=== PATIENT | female | born 1955 | race Caucasian/White ===

== ENCOUNTER 2018-09-08 16:42 | Emergency (ER) | payer OTHER ==
[2018-09-08] MEDS ORDERED: cefTRIAXone 1 GM Vial IM ONE (17:22)
[2018-09-08] MEDS ORDERED: Diphtheria,Pertussis(Acell),Tetanus Vaccine 0.5 ML Syringe IM ONE (17:25)
--- NOTE | 2018-09-08 17:28 | EDM.PDOC ---
ED HPI GENERAL MEDICAL PROBLEM - General Chief Complaint: Bite:Animal, Insect Stated Complaint: DOG BITE Time Seen by Provider: 09/08/18 17:26 Source of Information: Reports: Patient - History of Present Illness INITIAL COMMENTS - FREE TEXT/NARRATIVE: HISTORY AND PHYSICAL: History of present illness: []Patient presents with dog bite to her left hand over the dorsum to puncture wound is exist, one is a 1 cm full-thickness lack, the other is a tooth puncture with a partial-thickness drape Napoleon approximately 1.5 cm no suturing required Patient does know the dog, it has had all rabies shots and vaccinations No fever nausea vomiting chills sweats no redness warmth or exudates for culture Review of systems: As per history of present illness and below otherwise all systems reviewed and negative. Past medical history: As per history of present illness and as reviewed below otherwise noncontributory. Surgical history: As per history of present illness and as reviewed below otherwise noncontributory. Social history: No reported history of drug or alcohol abuse. Family history: As per history of present illness and as reviewed below otherwise noncontributory. Physical exam: HEENT: Atraumatic, normocephalic, pupils reactive, negative for conjunctival pallor or scleral icterus, mucous membranes moist, throat clear, neck supple, nontender, trachea midline. Lungs: Clear to auscultation, breath sounds equal bilaterally, chest nontender. Heart: S1S2, regular, negative for clicks, rubs, or JVD. Abdomen: Soft, nondistended, nontender. Negative for masses or hepatosplenomegaly. Negative for costovertebral tenderness. Pelvis: Stable nontender. Genitourinary: Deferred. Rectal: Deferred. Extremities: Atraumatic, negative for cords or calf pain. Neurovascular unremarkable. Neuro: Awake, alert, oriented. Cranial nerves II through XII unremarkable. Cerebellum unremarkable. Motor and sensory unremarkable throughout. Exam nonfocal. Diagnostics: [Clinical] Therapeutics: [Rocephin T dap Keflex] Patient had flushed the lesion at home Hibiclens Steri-Strips Impression: [Animal bite] Definitive disposition and diagnosis as appropriate pending reevaluation and review of above. Right Hand Pain Score (Numeric/FACES): 5 - Related Data Allergies Allergy/AdvReac Type Severity Reaction Status Date / Time vilanterol Allergy Anxiety Verified 09/08/18 17:03 Home Meds: Home Meds Levothyroxine 25 mcg PO ACBREAKFAST 09/08/18 [History] Past Medical History Endocrine/Metabolic History: Reports: Hypothyroidism - Infectious Disease History Infectious Disease History: Reports: Chicken Pox - Past Surgical History Musculoskeletal Surgical History: Reports: Knee Replacement Social & Family History - Family History Family Medical History: Noncontributory - Tobacco Use Smoking Status *Q: Never Smoker Second Hand Smoke Exposure: No - Caffeine Use Caffeine Use: Reports: Coffee - Recreational Drug Use Recreational Drug Use: No ED ROS GENERAL - Review of Systems Review Of Systems: See Below ED EXAM, ANIMAL BITE - Physical Exam Exam: See Below Course - Vital Signs Last Recorded V/S: Last Vital Signs Temp 96.5 F 09/08/18 17:05 Pulse 61 09/08/18 17:05 Resp 16 09/08/18 17:05 BP 176/95 H 09/08/18 17:05 Pulse Ox 95 09/08/18 17:05 - Orders/Labs/Meds Orders: Active Orders 24 hr Category Date Time Status Vaccines to be Administered [RC] PER UNIT ROUTINE Care 09/08/18 17:25 Ordered Diphth,Pertuss(Acell),Tet Vac [Adacel] Med 09/08/18 17:25 Once 0.5 ml IM .ONCE ONE Meds: Medications Discontinued Medications Generic Name Dose Route Start Last Admin Trade Name Jacki PRN Reason Stop Dose Admin Ceftriaxone Sodium 1 gm 09/08/18 17:22 Rocephin IM 09/08/18 17:23 ONETIME ONE Departure - Departure Time of Disposition: 17:28 Disposition: Home, Self-Care 01 Condition: Good Clinical Impression: Dog bite - Discharge Information Referrals: PCP,None [Primary Care Provider] - Additional Instructions: The following information is given to patients seen in the emergency department who are being discharged to home. This information is to outline your options for follow-up care. We provide all patients seen in our emergency department with a follow-up referral. The need for follow-up, as well as the timing and circumstances, are variable depending upon the specifics of your emergency department visit. If you don't have a primary care physician on staff, we will provide you with a referral. We always advise you to contact your personal physician following an emergency department visit to inform them of the circumstance of the visit and for follow-up with them and/or the need for any referrals to a consulting specialist. The emergency department will also refer you to a specialist when appropriate. This referral assures that you have the opportunity for follow-up care with a specialist. All of these measure are taken in an effort to provide you with optimal care, which includes your follow-up. Under all circumstances we always encourage you to contact your private physician who remains a resource for coordinating your care. When calling for follow-up care, please make the office aware that this follow-up is from your recent emergency room visit. If for any reason you are refused follow-up, please contact the [facility] emergency department at and asked to speak to the emergency department charge nurse. - My Orders Last 24 Hours: My Active Orders 09/08/18 17:25 Vaccines to be Administered [RC] PER UNIT ROUTINE Diphth,Pertuss(Acell),Tet Vac [Adacel] 0.5 ml IM .ONCE ONE - Assessment/Plan Last 24 Hours: My Active Orders 09/08/18 17:25 Vaccines to be Administered [RC] PER UNIT ROUTINE Diphth,Pertuss(Acell),Tet Vac [Adacel] 0.5 ml IM .ONCE ONE
[2018-09-08] MEDS ORDERED: Lidocaine 1% 2 ML ONE (17:33)
== END 2018-09-08 18:24 | disposition home or self-care (01) ==
LOC: MW.ED 16:42
DX: S61.452A Open bite of left hand, initial encounter (principal); Z23 Encounter for immunization; W54.0XXA Bitten by dog, initial encounter; Z88.8 Allergy status to other drugs, medicaments and biological substances
CPT/HCPCS: 90471; 90715; 96372; 99283; J0696

== ENCOUNTER 2019-12-06 15:28 | Inpatient (IN) | payer OTHER ==
[2019-12-06] MEDS ORDERED: Sodium Chloride 0.9% 10 ML Syringe FLUSH PRN (15:35)
[2019-12-06] MEDS ORDERED: Sodium Chloride 0.9% 2.5 ML Syringe FLUSH PRN (15:35)
[2019-12-06] MEDS ORDERED: Morphine 4 MG/ML Syringe IVPUSH ONE (15:36)
[2019-12-06] MEDS ORDERED: Ondansetron 4 MG/2 ML SDV IVPUSH ONE (15:36)
--- NOTE | 2019-12-06 15:41 | EDM.PDOC ---
ED HPI GENERAL MEDICAL PROBLEM - General Chief Complaint: Respiratory Problem Time Seen by Provider: 12/06/19 15:35 - History of Present Illness INITIAL COMMENTS - FREE TEXT/NARRATIVE: Patient is a 64-year-old female with no prior cardiac or pulmonary history known COVID-19 positive presenting with worsening cough and shortness of breath from the respiratory clinic. The patient reports that her symptoms started 11 days ago with generalized malaise and cough shortness of breath. Several days later tested positive for COVID-19. She felt like she was actually getting better and was planning to return to work tomorrow. However over the last 2 to 3 days she has started to feel worse again with increasing cough and worsening shortness of breath. No return of fevers or chills no diffuse myalgias. She does have chest pain but only during the active coughing not at any other time. No lower extremity pain or swelling. No recent travel. Symptoms not relieved by prescribed cough suppressant no radiation or other associated symptoms. chest Pain Score (Numeric/FACES): 7 - Related Data Allergies Allergy/AdvReac Type Severity Reaction Status Date / Time altretamine Allergy Other Verified 12/06/19 15:32 vilanterol Allergy Anxiety Verified 12/06/19 15:32 Home Meds: Home Meds Levothyroxine 25 mcg PO ACBREAKFAST 09/08/18 [History] Past Medical History Endocrine/Metabolic History: Reports: Hypothyroidism - Infectious Disease History Infectious Disease History: Reports: Chicken Pox - Past Surgical History Musculoskeletal Surgical History: Reports: Knee Replacement Social & Family History - Family History Family Medical History: Noncontributory - Caffeine Use Caffeine Use: Reports: Coffee ED ROS GENERAL - Review of Systems Review Of Systems: See Below Free Text/Narrative/Comment: General: No fever. Skin: No rash. Eyes: No vision problems. ENT: No sore throat. Neck: No neck stiffness. Respiratory: Per HPI Cardiac: No chest pain. Gastrointestinal: No nausea, vomiting or abdominal pain. Musculoskeletal: No myalgias/arthralgias. Neurologic: No headache. ED EXAM, GENERAL - Physical Exam Exam: See Below Free Text/Narrative:: General Appearance: No acute distress, appears comfortable Skin: No rash HEENT: Normocephalic/atraumatic, sclera anicteric, mucous membranes moist Neck: Normal range of motion Chest and Lungs: Bilateral breath sounds, frequent coughing but no rhonchi no wheezing no crackles at the bases Cardiovascular: Regular rate and rhythm, no murmur Abdomen: Soft, non-tender Back: Normal Musculoskeletal: No edema or tenderness Neurologic: Awake, alert, no obvious deficits, moving all extremities Psychiatric: Appropriate, cooperative Course - Vital Signs Last Recorded V/S: Last Vital Signs Temp 96.4 F L 12/06/19 15:34 Pulse 59 L 12/06/19 17:12 Resp 18 12/06/19 17:12 BP 113/64 12/06/19 17:12 Pulse Ox 93 L 12/06/19 17:12 - Orders/Labs/Meds Orders: Active Orders 24 hr Category Date Time Status EKG 12 Lead [EKG Documentation Completion] [RC] STAT Care 12/06/19 16:48 Active PROCALCITONIN [REF] Stat Lab 12/06/19 15:40 Received Sodium Chloride 0.9% [Saline Flush] Med 12/06/19 15:35 Active 10 ml FLUSH ASDIRECTED PRN Sodium Chloride 0.9% [Saline Flush] Med 12/06/19 15:35 Active 2.5 ml FLUSH ASDIRECTED PRN Saline Lock Insert [OM.PC] Stat Oth 12/06/19 15:35 Ordered Medication Orders Sodium Chloride (Saline Flush) 10 ml FLUSH ASDIRECTED PRN PRN Reason: Keep Vein Open Last Admin: 12/06/19 15:48 Dose: 10 ml Documented by: PIPER Sodium Chloride (Saline Flush) 2.5 ml FLUSH ASDIRECTED PRN PRN Reason: Keep Vein Open Last Admin: 12/06/19 15:48 Dose: 2.5 ml Documented by: PIPER Labs: Laboratory Tests 12/06/19 12/06/19 12/06/19 Range/Units 15:40 15:40 15:40 WBC 5.37 (4.0-11.0) K/uL RBC 5.16 (4.30-5.90) M/uL Hgb 14.9 (12.0-16.0) g/dL Hct 46.2 H (36.0-46.0) % MCV 89.5 (80.0-98.0) fL MCH 28.9 (27.0-32.0) pg MCHC 32.3 (31.0-37.0) g/dL RDW Std Deviation 42.4 (28.0-62.0) fl RDW Coeff of Von 13 (11.0-15.0) % Plt Count 188 (150-400) K/uL MPV 10.40 (7.40-12.00) fL Neut % (Auto) 79.8 (48.0-80.0) % Lymph % (Auto) 14.0 L (16.0-40.0) % Hays % (Auto) 5.8 (0.0-15.0) % Eos % (Auto) 0.2 (0.0-7.0) % Baso % (Auto) 0.2 (0.0-1.5) % Neut # (Auto) 4.3 (1.4-5.7) K/uL Lymph # (Auto) 0.8 (0.6-2.4) K/uL Hays # (Auto) 0.3 (0.0-0.8) K/uL Eos # (Auto) 0.0 (0.0-0.7) K/uL Baso # (Auto) 0.0 (0.0-0.1) K/uL Nucleated RBC % 0.0 /100WBC Nucleated RBCs # 0 K/uL Sodium 143 (136-145) mmol/L Potassium 3.6 (3.5-5.1) mmol/L Chloride 105 (98-107) mmol/L Carbon Dioxide 26.8 (21.0-32.0) mmol/L BUN 15 (7.0-18.0) mg/dL Creatinine 1.0 (0.6-1.0) mg/dL Est Cr Clr Drug Dosing 65.20 mL/min Estimated GFR (MDRD) 56.2 ml/min Glucose 120 H (74-106) mg/dL Calcium 8.4 L (8.5-10.1) mg/dL Total Bilirubin 0.7 (0.2-1.0) mg/dL AST 43 H (15-37) IU/L ALT 54 (14-63) IU/L Alkaline Phosphatase 135 H (46-116) U/L Troponin I < 0.050 (0.000-0.056) ng/mL B-Natriuretic Peptide (<100) PG/ML Total Protein 7.9 (6.4-8.2) g/dL Albumin 3.6 (3.4-5.0) g/dL Globulin 4.3 H (2.6-4.0) g/dL Albumin/Globulin Ratio 0.8 L (0.9-1.6) SARS-CoV-2 RNA ([facility]) (NEGATIVE) 12/06/19 12/06/19 Range/Units 15:40 17:03 WBC (4.0-11.0) K/uL RBC (4.30-5.90) M/uL Hgb (12.0-16.0) g/dL Hct (36.0-46.0) % MCV (80.0-98.0) fL MCH (27.0-32.0) pg MCHC (31.0-37.0) g/dL RDW Std Deviation (28.0-62.0) fl RDW Coeff of Von (11.0-15.0) % Plt Count (150-400) K/uL MPV (7.40-12.00) fL Neut % (Auto) (48.0-80.0) % Lymph % (Auto) (16.0-40.0) % Hays % (Auto) (0.0-15.0) % Eos % (Auto) (0.0-7.0) % Baso % (Auto) (0.0-1.5) % Neut # (Auto) (1.4-5.7) K/uL Lymph # (Auto) (0.6-2.4) K/uL Hays # (Auto) (0.0-0.8) K/uL Eos # (Auto) (0.0-0.7) K/uL Baso # (Auto) (0.0-0.1) K/uL Nucleated RBC % /100WBC Nucleated RBCs # K/uL Sodium (136-145) mmol/L Potassium (3.5-5.1) mmol/L Chloride (98-107) mmol/L Carbon Dioxide (21.0-32.0) mmol/L BUN (7.0-18.0) mg/dL Creatinine (0.6-1.0) mg/dL Est Cr Clr Drug Dosing mL/min Estimated GFR (MDRD) ml/min Glucose (74-106) mg/dL Calcium (8.5-10.1) mg/dL Total Bilirubin (0.2-1.0) mg/dL AST (15-37) IU/L ALT (14-63) IU/L Alkaline Phosphatase (46-116) U/L Troponin I (0.000-0.056) ng/mL B-Natriuretic Peptide 56 (<100) PG/ML Total Protein (6.4-8.2) g/dL Albumin (3.4-5.0) g/dL Globulin (2.6-4.0) g/dL Albumin/Globulin Ratio (0.9-1.6) SARS-CoV-2 RNA ([facility]) POSITIVE H (NEGATIVE) Meds: Medications Generic Name Dose Route Start Last Admin Trade Name Freq PRN Reason Stop Dose Admin Sodium Chloride 10 ml 12/06/19 15:35 12/06/19 15:48 Saline Flush FLUSH 10 ml ASDIRECTED PRN Administration Keep Vein Open Sodium Chloride 2.5 ml 12/06/19 15:35 12/06/19 15:48 Saline Flush FLUSH 2.5 ml ASDIRECTED PRN Administration Keep Vein Open Discontinued Medications Generic Name Dose Route Start Last Admin Trade Name Freq PRN Reason Stop Dose Admin Remdesivir 200 mg/ Sodium 250 mls @ 250 mls/hr 12/06/19 18:19 Chloride IV 12/06/19 18:20 ONETIME ONE Morphine Sulfate 4 mg 12/06/19 15:36 12/06/19 15:47 Morphine IVPUSH 12/06/19 15:37 4 mg ONETIME ONE Administration Ondansetron HCl 4 mg 12/06/19 15:36 12/06/19 15:47 Zofran IVPUSH 12/06/19 15:37 4 mg ONETIME ONE Administration Prochlorperazine Edisylate 10 mg 12/06/19 16:48 12/06/19 16:58 Compazine IM 12/06/19 16:49 10 mg ONETIME ONE Administration Departure - Departure Time of Disposition: 18:55 Disposition: Admitted As Inpatient 68 Condition: Fair Clinical Impression: COVID-19 - Discharge Information *PRESCRIPTION DRUG MONITORING PROGRAM REVIEWED*: Yes (no recent sedative or narcotic Rx's) *COPY OF PRESCRIPTION DRUG MONITORING REPORT IN PATIENT VERNA: Not Applicable Sepsis Event Note (ED) - Evaluation Sepsis Screening Result: No Definite Risk - Focused Exam Vital Signs: Vital Signs Temp Pulse Resp BP Pulse Ox 12/06/19 17:12 59 L 18 113/64 93 L 12/06/19 15:58 92 L 12/06/19 15:57 88 12/06/19 15:34 96.4 F L 85 20 132/101 H 92 L - My Orders Last 24 Hours: My Active Orders 12/06/19 15:35 Sodium Chloride 0.9% [Saline Flush] 10 ml FLUSH ASDIRECTED PRN Sodium Chloride 0.9% [Saline Flush] 2.5 ml FLUSH ASDIRECTED PRN Saline Lock Insert [OM.PC] Stat 12/06/19 15:40 PROCALCITONIN [REF] Stat 12/06/19 16:48 EKG 12 Lead [EKG Documentation Completion] [RC] STAT - Assessment/Plan Last 24 Hours: My Active Orders 12/06/19 15:35 Sodium Chloride 0.9% [Saline Flush] 10 ml FLUSH ASDIRECTED PRN Sodium Chloride 0.9% [Saline Flush] 2.5 ml FLUSH ASDIRECTED PRN Saline Lock Insert [OM.PC] Stat 12/06/19 15:40 PROCALCITONIN [REF] Stat 12/06/19 16:48 EKG 12 Lead [EKG Documentation Completion] [RC] STAT Assessment:: 64-year-old female presenting with known COVID-19 infection and now worsening symptoms. Secondary bacterial pneumonia needs to be considered and CBC CMP pro calcitonin and chest x-ray been ordered. The patient does not demonstrate hypoxic respiratory failure her oxygen saturation is primarily in the low 90s it does very briefly dipped to 90 during a coughing fit but then climbs back up. ACS considered but the patient only has chest pain with coughing and coughing is her primary presenting symptom of chest pain. Similarly PE considered but the patient's oxygen saturation is greater than 90 on room air she has no tachycardia she has no pleuritic chest pain. Pneumothorax likewise felt unlikely. No concern for aortic dissection. No findings of sepsis clinically. Patient does not appear clinically fluid overloaded no crackles at the bases lower extremity edema etc. Morphine and Zofran added for symptomatic management of her cough final disposition pending results of above. 1700: Nursing reports patient now hypoxic to 86-87 on RA and O2 via NC added. Pt also with an episode of emesis. Given this clinical worsening and potential need for admission will broaden eval. Trop and BNP added to the blood in the lab as was a CTPA of the chest. Compazine added for vomiting. IF patient remains hypoxic she will need admission for hypoxic respiratory failure 2/ COVID-19 1814: Patient CT scan demonstrates diffuse groundglass opacities that better explain her symptoms and hypoxia. It is negative for pulmonary embolism and I think acute hypoxic respiratory failure due to ongoing complications of COVID-19 is the likely diagnosis. The patient is currently breathing comfortably but on 5 L nasal cannula. Will discuss with the hospitalist regarding admission. 1899: PT discussed with Dr. Kevin. She agrees with admission to tele. She requested we start the remdesivir. I ordered it. However, I've been informed that it's not something that we can start in the ED and will have to defer to the floor.
[2019-12-06 16:27] LABS: CARBON DIOXIDE,CO2 26.8 mmol/L (21.0-32.0); POTASSIUM,K 3.6 mmol/L (3.5-5.1)
--- NOTE | 2019-12-06 16:35 | CR ---
Chest: AP view of the chest was obtained. Comparison: No prior chest imaging is available. Minimal density noted within the left mid lower lung possibly due to minimal areas of viral pneumonia. Lungs otherwise are clear. Heart size and mediastinum are normal for AP technique. Bony structures shows degenerative change within both shoulders. Impression: 1. Minimal density within the left mid and lower lung possibly due to minimal areas of viral pneumonia. 2. Chest x-ray is otherwise unremarkable. Diagnostic code #3 This report was dictated in MDT
[2019-12-06] MEDS ORDERED: Prochlorperazine 10 MG/2 ML SDV IM ONE (16:48)
--- NOTE | 2019-12-06 18:09 | CT ---
CT chest Technique: Multiple axial sections through the chest were obtained. Intravenous contrast was utilized. Study has been performed as a pulmonary angiogram protocol. Findings: Pulmonary arteries show no filling defects to indicate definite pulmonary embolism. Aorta shows no aneurysm. Mediastinum and hilar regions show no adenopathy. No axillary adenopathy is seen. Visualized upper abdominal structures shows no discrete abnormality. Patchy areas of groundglass densities are noted within both sides of the chest, worse on the left side. Findings are compatible with viral pneumonia. No pleural effusions or pneumothorax is seen. Bone window settings were reviewed which shows no acute osseous finding. Impression: 1. Patchy areas of groundglass opacities within both sides of the chest compatible with diffuse viral pneumonia. 2. No findings of pulmonary embolism. Diagnostic code #5 This report was dictated in MDT
[2019-12-06] MEDS ORDERED: REMDESIVIR 200 MG in Sodium Chloride 0.9% 250 ML IV ONE ×2 (18:19→22:30)
[2019-12-06] MEDS ORDERED: Ondansetron 4 MG/2 ML SDV IVPUSH PRN (18:55)
[2019-12-06] MEDS ORDERED: Iopamidol 755 Mg/ML 100 ML Bottle IVPUSH STA (19:34)
[2019-12-06] MEDS: Dexamethasone 4 MG Tab PO SCH (20:20)
[2019-12-06] MEDS: Enoxaparin 40 MG/0.4 ML Syringe SUBCUT SCH (20:20)
[2019-12-06] MEDS: Acetaminophen 325 MG Tab PO PRN (21:25)
--- NOTE | 2019-12-06 22:52 | PCM.HP.2 ---
H&P History of Present Illness - General Date of Service: 12/06/19 Admit Problem/Dx: Admission Diagnosis/Problem Admission Diagnosis/Problem Respiratory failure with hypoxia - History of Present Illness Initial Comments - Free Text/Narative: Patient is a 64-year-old female with PMH of hypothyroidism, known COVID-19 positive presenting with worsening cough and shortness of breath from the respiratory clinic. The patient reports that her symptoms started 11 days ago with generalized malaise and cough shortness of breath. Several days later tested positive for COVID-19. She felt like she was actually getting better and was planning to return to work tomorrow. However over the last 2 to 3 days she has started to feel worse again with increasing cough and worsening shortness of breath. No return of fevers or chills no diffuse myalgias. She does have chest pain but only during the active coughing not at any other time. No lower extremity pain or swelling. No recent travel. Symptoms not relieved by prescribed cough suppressant. Patient was initially not hypoxic but later became increasingly 86-87 on RA and O2 via NC added. Pt also with an episode of emesis. Patients CT scan chest demonstrates diffuse groundglass opacities, negative for pulmonary embolism. Patient was admitted for Acute hypoxic respiratory failure sec to COVID. Headache Pain Score (Numeric/FACES): 5 chest Pain Score (Numeric/FACES): 7 - Related Data Allergies/Adverse Reactions: Allergies Allergy/AdvReac Type Severity Reaction Status Date / Time altretamine Allergy Other Verified 12/07/19 04:14 vilanterol Allergy Anxiety Verified 12/07/19 04:14 Home Medications: Home Meds Levothyroxine 100 mcg PO ACBREAKFAST 09/08/18 [History] Past Medical History HEENT History: Reports: None Cardiovascular History: Reports: None Respiratory History: Reports: None Gastrointestinal History: Reports: None Genitourinary History: Reports: None [employer]ER History: Reports: None Musculoskeletal History: Reports: None Neurological History: Reports: None Psychiatric History: Reports: None Endocrine/Metabolic History: Reports: Hypothyroidism Hematologic History: Reports: None Oncologic (Cancer) History: Reports: None Dermatologic History: Reports: None - Infectious Disease History Infectious Disease History: Reports: Chicken Pox - Past Surgical History Musculoskeletal Surgical History: Reports: Knee Replacement Social & Family History - Family History Family Medical History: Noncontributory - Tobacco Use Smoking Status *Q: Never Smoker - Caffeine Use Caffeine Use: Reports: Soda - Recreational Drug Use Recreational Drug Use: No H&P Review of Systems - Review of Systems: Review Of Systems: See Below General: Reports: Chills, Malaise, Weakness, Fatigue. Denies: Fever Pulmonary: Reports: Shortness of Breath, Cough. Denies: Pleuritic Chest Pain, Sputum Cardiovascular: Denies: Chest Pain, Palpitations, Dyspnea on Exertion Gastrointestinal: Denies: Abdominal Pain, Anorexia, Black Stool, Bloody Stool Genitourinary: Denies: Dysuria, Frequency, Burning, Pain Musculoskeletal: Denies: Neck Pain, Shoulder Pain, Arm Pain Skin: Denies: Cyanosis, Jaundice, Mottled, Pallor Psychiatric: Denies: Confusion, Depression, Mood Lability, Anxiety Exam - Exam Exam: See Below - Vital Signs Vital Signs: Last Vital Signs Temp 36.2 C 12/06/19 20:10 Pulse 84 12/06/19 20:10 Resp 19 12/06/19 20:10 BP 110/70 12/06/19 20:10 Pulse Ox 93 L 12/06/19 20:10 Weight: 147.327 kg - Exam General: Alert, Oriented Neck: Supple, Trachea Midline Lungs: Decreased Breath Sounds, Rales Cardiovascular: Regular Rate, Regular Rhythm, Normal S1, Normal S2 - Patient Data Lab Results Last 24 hrs: Laboratory Results - last 24 hr 12/06/19 12/06/19 12/06/19 Range/Units 15:40 15:40 15:40 WBC 5.37 (4.0-11.0) K/uL RBC 5.16 (4.30-5.90) M/uL Hgb 14.9 (12.0-16.0) g/dL Hct 46.2 H (36.0-46.0) % MCV 89.5 (80.0-98.0) fL MCH 28.9 (27.0-32.0) pg MCHC 32.3 (31.0-37.0) g/dL RDW Std Deviation 42.4 (28.0-62.0) fl RDW Coeff of Von 13 (11.0-15.0) % Plt Count 188 (150-400) K/uL MPV 10.40 (7.40-12.00) fL Neut % (Auto) 79.8 (48.0-80.0) % Lymph % (Auto) 14.0 L (16.0-40.0) % [place] % (Auto) 5.8 (0.0-15.0) % Eos % (Auto) 0.2 (0.0-7.0) % Baso % (Auto) 0.2 (0.0-1.5) % Neut # (Auto) 4.3 (1.4-5.7) K/uL Lymph # (Auto) 0.8 (0.6-2.4) K/uL [place] # (Auto) 0.3 (0.0-0.8) K/uL Eos # (Auto) 0.0 (0.0-0.7) K/uL Baso # (Auto) 0.0 (0.0-0.1) K/uL Nucleated RBC % 0.0 /100WBC Nucleated RBCs # 0 K/uL Sodium 143 (136-145) mmol/L Potassium 3.6 (3.5-5.1) mmol/L Chloride 105 (98-107) mmol/L Carbon Dioxide 26.8 (21.0-32.0) mmol/L BUN 15 (7.0-18.0) mg/dL Creatinine 1.0 (0.6-1.0) mg/dL Est Cr Clr Drug Dosing 65.20 mL/min Estimated GFR (MDRD) 56.2 ml/min Glucose 120 H (74-106) mg/dL Calcium 8.4 L (8.5-10.1) mg/dL Total Bilirubin 0.7 (0.2-1.0) mg/dL AST 43 H (15-37) IU/L ALT 54 (14-63) IU/L Alkaline Phosphatase 135 H (46-116) U/L Troponin I < 0.050 (0.000-0.056) ng/mL B-Natriuretic Peptide (<100) PG/ML Total Protein 7.9 (6.4-8.2) g/dL Albumin 3.6 (3.4-5.0) g/dL Globulin 4.3 H (2.6-4.0) g/dL Albumin/Globulin Ratio 0.8 L (0.9-1.6) SARS-CoV-2 RNA ([facility]) (NEGATIVE) 12/06/19 12/06/19 Range/Units 15:40 17:03 WBC (4.0-11.0) K/uL RBC (4.30-5.90) M/uL Hgb (12.0-16.0) g/dL Hct (36.0-46.0) % MCV (80.0-98.0) fL MCH (27.0-32.0) pg MCHC (31.0-37.0) g/dL RDW Std Deviation (28.0-62.0) fl RDW Coeff of Von (11.0-15.0) % Plt Count (150-400) K/uL MPV (7.40-12.00) fL Neut % (Auto) (48.0-80.0) % Lymph % (Auto) (16.0-40.0) % [place] % (Auto) (0.0-15.0) % Eos % (Auto) (0.0-7.0) % Baso % (Auto) (0.0-1.5) % Neut # (Auto) (1.4-5.7) K/uL Lymph # (Auto) (0.6-2.4) K/uL [place] # (Auto) (0.0-0.8) K/uL Eos # (Auto) (0.0-0.7) K/uL Baso # (Auto) (0.0-0.1) K/uL Nucleated RBC % /100WBC Nucleated RBCs # K/uL Sodium (136-145) mmol/L Potassium (3.5-5.1) mmol/L Chloride (98-107) mmol/L Carbon Dioxide (21.0-32.0) mmol/L BUN (7.0-18.0) mg/dL Creatinine (0.6-1.0) mg/dL Est Cr Clr Drug Dosing mL/min Estimated GFR (MDRD) ml/min Glucose (74-106) mg/dL Calcium (8.5-10.1) mg/dL Total Bilirubin (0.2-1.0) mg/dL AST (15-37) IU/L ALT (14-63) IU/L Alkaline Phosphatase (46-116) U/L Troponin I (0.000-0.056) ng/mL B-Natriuretic Peptide 56 (<100) PG/ML Total Protein (6.4-8.2) g/dL Albumin (3.4-5.0) g/dL Globulin (2.6-4.0) g/dL Albumin/Globulin Ratio (0.9-1.6) SARS-CoV-2 RNA ([facility]) POSITIVE H (NEGATIVE) Result Diagrams: 12/07/19 06:37 12/07/19 06:37 Sepsis Event Note - Evaluation Sepsis Screening Result: No Definite Risk - Focused Exam Vital Signs: Vital Signs Temp Pulse Resp BP Pulse Ox Pulse Ox 12/06/19 20:10 36.2 C 84 19 110/70 93 L 12/06/19 20:00 93 L 93 L 12/06/19 17:12 59 L 18 113/64 93 L 12/06/19 15:58 92 L 12/06/19 15:57 88 12/06/19 15:34 35.8 C L 85 20 132/101 H 92 L - Problem List (1) Acute hypoxemic respiratory failure due to COVID-19 SNOMED Code(s): 790240825 ICD Code: U07.1 - COVID-19; J96.01 - ACUTE RESPIRATORY FAILURE WITH HYPOXIA Status: Acute Current Visit: Yes (2) Hypothyroidism SNOMED Code(s): 99765353 ICD Code: E03.9 - HYPOTHYROIDISM, UNSPECIFIED Status: Acute Current Visit: Yes (3) COVID-19 SNOMED Code(s): 002273754 ICD Code: U07.1 - COVID-19 Status: Acute Current Visit: No Problem List Initiated/Reviewed/Updated: Yes Orders Last 24hrs: Active Orders 24 hr Category Date Time Status Patient Status [ADT] Routine ADT 12/06/19 18:19 Active Ambulate [RC] ASDIRECTED Care 12/06/19 18:55 Active Antiembolic Devices [RC] PER UNIT ROUTINE Care 12/06/19 18:56 Active EKG 12 Lead [EKG Documentation Completion] [RC] STAT Care 12/06/19 16:48 Active Oxygen Therapy [RC] PRN Care 12/06/19 18:55 Active Pulse Oximetry [RC] PRN Care 12/06/19 18:55 Active RT Post Treatment Assessment [RC] Click to Edit Care 12/06/19 18:58 Active RT Pre-Treatment Assessment [RC] Click to Edit Care 12/06/19 18:58 Active Telemetry Monitoring [Cardiac Monitoring] [RC] . Care 12/06/19 19:10 Active DIRECTED VTE/DVT Education [RC] PER UNIT ROUTINE Care 12/06/19 18:55 Active Vital Signs [RC] Q4H Care 12/06/19 18:55 Active Regular Diet [DIET] Diet 12/06/19 Dinner Active CBC WITH AUTO DIFF [HEME] AM Lab 12/07/19 05:11 Ordered CMP [COMPREHENSIVE METABOLIC PN,CMP] [CHEM] AM Lab 12/07/19 05:11 Ordered MAGNESIUM [CHEM] AM Lab 12/07/19 05:11 Ordered PHOSPHORUS [CHEM] AM Lab 12/07/19 05:11 Ordered PROCALCITONIN [REF] Stat Lab 12/06/19 15:40 Received Acetaminophen [TylenoL] Med 12/06/19 18:55 Active 650 mg PO Q4H PRN Albuterol/Ipratropium [Combivent Respimat] Med 12/06/19 18:58 Active See Dose Instructions INH Q4H PRN Enoxaparin [Lovenox] Med 12/06/19 19:00 Active 40 mg SUBCUT Q12H Ondansetron [Zofran] Med 12/06/19 18:55 Active 4 mg IVPUSH Q4H PRN Remdesivir (Eua) [Remdesivir (EUA)] 100 mg Med 12/07/19 09:00 Active Sodium Chloride 0.9% [Normal Saline] 100 ml IV Q24H Remdesivir (Eua) [Remdesivir (EUA)] 200 mg Med 12/06/19 22:30 Active Sodium Chloride 0.9% [Normal Saline] 250 ml IV ONETIME Sodium Chloride 0.9% [Saline Flush] Med 12/06/19 15:35 Active 10 ml FLUSH ASDIRECTED PRN Sodium Chloride 0.9% [Saline Flush] Med 12/06/19 15:35 Active 2.5 ml FLUSH ASDIRECTED PRN dexAMETHasone Med 12/06/19 19:00 Active 6 mg PO DAILY Saline Lock Insert [OM.PC] Stat Oth 12/06/19 15:35 Ordered Sequential Compression Device [OM.PC] Per Unit Routine Oth 12/06/19 18:55 Ordered Resuscitation Status Routine Resus Stat 12/06/19 18:55 Ordered Medication Orders Acetaminophen (Tylenol) 650 mg PO Q4H PRN PRN Reason: Pain (Mild 1-3)/fever Last Admin: 12/06/19 21:25 Dose: 650 mg Documented by: MAGGIE Albuterol/Ipratropium (Combivent Respimat) 0 gm INH Q4H PRN PRN Reason: Dyspnea Dexamethasone (Dexamethasone) 6 mg PO DAILY [facility] Last Admin: 12/06/19 20:20 Dose: 6 mg Documented by: MAGGIE Enoxaparin Sodium (Lovenox) 40 mg SUBCUT Q12H [facility] Last Admin: 12/06/19 20:20 Dose: 40 mg Documented by: MAGGIE Remdesivir 100 mg/ Sodium (Chloride) 100 mls @ 100 mls/hr IV Q24H QUANG Remdesivir 200 mg/ Sodium (Chloride) 250 mls @ 250 mls/hr IV ONETIME ONE Stop: 12/06/19 23:29 Ondansetron HCl (Zofran) 4 mg IVPUSH Q4H PRN PRN Reason: Nausea/Vomiting Sodium Chloride (Saline Flush) 10 ml FLUSH ASDIRECTED PRN PRN Reason: Keep Vein Open Last Admin: 12/06/19 15:48 Dose: 10 ml Documented by: PIPER Sodium Chloride (Saline Flush) 2.5 ml FLUSH ASDIRECTED PRN PRN Reason: Keep Vein Open Last Admin: 12/06/19 15:48 Dose: 2.5 ml Documented by: PIPER Assessment/Plan Comment:: 64 y/o F admitted for Acute hypoxic respiratory failure sec to COVID cont oxygenation via NC, currently on 2L start Remdesivir start dexamethasone start Lovenox cont Synthroid monitor and replete electrolytes
[2019-12-07] MEDS: Enoxaparin 40 MG/0.4 ML Syringe SUBCUT SCH ×2 (06:41→19:55)
[2019-12-07 07:10] LABS: BLOOD UREA NITROGEN,BUN 19 mg/dL (7.0-18.0); CARBON DIOXIDE,CO2 26.3 mmol/L (21.0-32.0); CHLORIDE,CL 106 mmol/L (98-107); GLUCOSE RANDOM 178 mg/dL (74-106); POTASSIUM,K 4.1 mmol/L (3.5-5.1); SODIUM,NA 141 mmol/L (136-145)
[2019-12-07] MEDS ORDERED: REMDESIVIR 100 MG in Sodium Chloride 0.9% 100 ML IV SCH (09:00)
[2019-12-07] MEDS: Dexamethasone 4 MG Tab PO SCH (09:39)
[2019-12-07] MEDS: Acetaminophen 325 MG Tab PO PRN ×2 (09:39→13:18)
[2019-12-07] MEDS: Albuterol/Ipratropium 4 GM Inhalation Spray INH PRN ×2 (09:53→17:54)
--- NOTE | 2019-12-07 09:56 | PCM.PN ---
- General Info Date of Service: 12/07/19 Admission Dx/Problem (Free Text): Admission Diagnosis/Problem Admission Diagnosis/Problem Respiratory failure with hypoxia Subjective Update: seen at bedside, tearful, is "tired of being sick" - Review of Systems General: Reports: Weakness, Fatigue, Malaise. Denies: Fever Pulmonary: Reports: Shortness of Breath, Cough. Denies: Pleuritic Chest Pain, Sputum Cardiovascular: Reports: Dyspnea on Exertion. Denies: Chest Pain, Palpitations, Orthopnea Gastrointestinal: Denies: Abdominal Pain, Constipation, Decreased Appetite Genitourinary: Denies: Dysuria, Frequency, Burning Musculoskeletal: Denies: Neck Pain, Shoulder Pain, Arm Pain Skin: Denies: Cyanosis, Jaundice, Mottled - Patient Data Vitals - Most Recent: Last Vital Signs Temp 36.1 C 12/07/19 07:57 Pulse 56 L 12/07/19 07:57 Resp 17 12/07/19 04:00 BP 122/81 12/07/19 07:57 Pulse Ox 92 L 12/07/19 07:57 Weight - Most Recent: 147.327 kg I&O - Last 24 Hours: Intake & Output 12/06/19 12/07/19 12/07/19 22:59 06:59 14:59 Intake Total 900 Output Total 650 Balance 250 Lab Results Last 24 Hours: Laboratory Results - last 24 hr 12/06/19 12/06/19 12/06/19 Range/Units 15:40 15:40 15:40 WBC 5.37 (4.0-11.0) K/uL RBC 5.16 (4.30-5.90) M/uL Hgb 14.9 (12.0-16.0) g/dL Hct 46.2 H (36.0-46.0) % MCV 89.5 (80.0-98.0) fL MCH 28.9 (27.0-32.0) pg MCHC 32.3 (31.0-37.0) g/dL RDW Std Deviation 42.4 (28.0-62.0) fl RDW Coeff of Von 13 (11.0-15.0) % Plt Count 188 (150-400) K/uL MPV 10.40 (7.40-12.00) fL Neut % (Auto) 79.8 (48.0-80.0) % Lymph % (Auto) 14.0 L (16.0-40.0) % [place] % (Auto) 5.8 (0.0-15.0) % Eos % (Auto) 0.2 (0.0-7.0) % Baso % (Auto) 0.2 (0.0-1.5) % Neut # (Auto) 4.3 (1.4-5.7) K/uL Lymph # (Auto) 0.8 (0.6-2.4) K/uL [place] # (Auto) 0.3 (0.0-0.8) K/uL Eos # (Auto) 0.0 (0.0-0.7) K/uL Baso # (Auto) 0.0 (0.0-0.1) K/uL Nucleated RBC % 0.0 /100WBC Nucleated RBCs # 0 K/uL Sodium 143 (136-145) mmol/L Potassium 3.6 (3.5-5.1) mmol/L Chloride 105 (98-107) mmol/L Carbon Dioxide 26.8 (21.0-32.0) mmol/L BUN 15 (7.0-18.0) mg/dL Creatinine 1.0 (0.6-1.0) mg/dL Est Cr Clr Drug Dosing 65.20 mL/min Estimated GFR (MDRD) 56.2 ml/min Glucose 120 H (74-106) mg/dL Calcium 8.4 L (8.5-10.1) mg/dL Phosphorus (2.6-4.7) mg/dL Magnesium (1.8-2.4) mg/dL Total Bilirubin 0.7 (0.2-1.0) mg/dL AST 43 H (15-37) IU/L ALT 54 (14-63) IU/L Alkaline Phosphatase 135 H (46-116) U/L Troponin I < 0.050 (0.000-0.056) ng/mL B-Natriuretic Peptide (<100) PG/ML Total Protein 7.9 (6.4-8.2) g/dL Albumin 3.6 (3.4-5.0) g/dL Globulin 4.3 H (2.6-4.0) g/dL Albumin/Globulin Ratio 0.8 L (0.9-1.6) SARS-CoV-2 RNA ([facility]) (NEGATIVE) 12/06/19 12/06/19 12/07/19 Range/Units 15:40 17:03 06:37 WBC 2.91 L (4.0-11.0) K/uL RBC 4.72 (4.30-5.90) M/uL Hgb 13.6 (12.0-16.0) g/dL Hct 42.2 (36.0-46.0) % MCV 89.4 (80.0-98.0) fL MCH 28.8 (27.0-32.0) pg MCHC 32.2 (31.0-37.0) g/dL RDW Std Deviation 42.4 (28.0-62.0) fl RDW Coeff of Von 13 (11.0-15.0) % Plt Count 181 (150-400) K/uL MPV 10.30 (7.40-12.00) fL Neut % (Auto) 77.0 (48.0-80.0) % Lymph % (Auto) 19.6 (16.0-40.0) % [place] % (Auto) 3.1 (0.0-15.0) % Eos % (Auto) 0.0 (0.0-7.0) % Baso % (Auto) 0.3 (0.0-1.5) % Neut # (Auto) 2.2 (1.4-5.7) K/uL Lymph # (Auto) 0.6 (0.6-2.4) K/uL [place] # (Auto) 0.1 (0.0-0.8) K/uL Eos # (Auto) 0.0 (0.0-0.7) K/uL Baso # (Auto) 0.0 (0.0-0.1) K/uL Nucleated RBC % 0.0 /100WBC Nucleated RBCs # 0 K/uL Sodium (136-145) mmol/L Potassium (3.5-5.1) mmol/L Chloride (98-107) mmol/L Carbon Dioxide (21.0-32.0) mmol/L BUN (7.0-18.0) mg/dL Creatinine (0.6-1.0) mg/dL Est Cr Clr Drug Dosing mL/min Estimated GFR (MDRD) ml/min Glucose (74-106) mg/dL Calcium (8.5-10.1) mg/dL Phosphorus (2.6-4.7) mg/dL Magnesium (1.8-2.4) mg/dL Total Bilirubin (0.2-1.0) mg/dL AST (15-37) IU/L ALT (14-63) IU/L Alkaline Phosphatase (46-116) U/L Troponin I (0.000-0.056) ng/mL B-Natriuretic Peptide 56 (<100) PG/ML Total Protein (6.4-8.2) g/dL Albumin (3.4-5.0) g/dL Globulin (2.6-4.0) g/dL Albumin/Globulin Ratio (0.9-1.6) SARS-CoV-2 RNA ([facility]) POSITIVE H (NEGATIVE) 12/07/19 Range/Units 06:37 WBC (4.0-11.0) K/uL RBC (4.30-5.90) M/uL Hgb (12.0-16.0) g/dL Hct (36.0-46.0) % MCV (80.0-98.0) fL MCH (27.0-32.0) pg MCHC (31.0-37.0) g/dL RDW Std Deviation (28.0-62.0) fl RDW Coeff of Von (11.0-15.0) % Plt Count (150-400) K/uL MPV (7.40-12.00) fL Neut % (Auto) (48.0-80.0) % Lymph % (Auto) (16.0-40.0) % [place] % (Auto) (0.0-15.0) % Eos % (Auto) (0.0-7.0) % Baso % (Auto) (0.0-1.5) % Neut # (Auto) (1.4-5.7) K/uL Lymph # (Auto) (0.6-2.4) K/uL [place] # (Auto) (0.0-0.8) K/uL Eos # (Auto) (0.0-0.7) K/uL Baso # (Auto) (0.0-0.1) K/uL Nucleated RBC % /100WBC Nucleated RBCs # K/uL Sodium 141 (136-145) mmol/L Potassium 4.1 (3.5-5.1) mmol/L Chloride 106 (98-107) mmol/L Carbon Dioxide 26.3 (21.0-32.0) mmol/L BUN 19 H (7.0-18.0) mg/dL Creatinine 0.9 (0.6-1.0) mg/dL Est Cr Clr Drug Dosing 72.44 mL/min Estimated GFR (MDRD) > 60.0 ml/min Glucose 178 H (74-106) mg/dL Calcium 8.2 L (8.5-10.1) mg/dL Phosphorus 3.7 (2.6-4.7) mg/dL Magnesium 2.5 H (1.8-2.4) mg/dL Total Bilirubin 0.3 (0.2-1.0) mg/dL AST 140 H (15-37) IU/L ALT 161 H (14-63) IU/L Alkaline Phosphatase 189 H (46-116) U/L Troponin I (0.000-0.056) ng/mL B-Natriuretic Peptide (<100) PG/ML Total Protein 7.1 (6.4-8.2) g/dL Albumin 3.1 L (3.4-5.0) g/dL Globulin 4.0 (2.6-4.0) g/dL Albumin/Globulin Ratio 0.8 L (0.9-1.6) SARS-CoV-2 RNA ([facility]) (NEGATIVE) Med Orders - Current: Current Medications Acetaminophen (Tylenol) 650 mg PO Q4H PRN PRN Reason: Pain (Mild 1-3)/fever Last Admin: 12/07/19 09:39 Dose: 650 mg Documented by: Albuterol/Ipratropium (Combivent Respimat) 0 gm INH Q4H PRN PRN Reason: Dyspnea Last Admin: 12/07/19 09:53 Dose: 4 gm Documented by: Dexamethasone (Dexamethasone) 6 mg PO DAILY [facility] Last Admin: 12/07/19 09:39 Dose: 6 mg Documented by: Enoxaparin Sodium (Lovenox) 40 mg SUBCUT Q12H [facility] Last Admin: 09/24/20 06:41 Dose: 40 mg Documented by: Remdesivir 100 mg/ Sodium (Chloride) 100 mls @ 100 mls/hr IV Q24H QUANG Levothyroxine Sodium (Levothyroxine) 100 mcg PO ACBREAKFAST QUANG Ondansetron HCl (Zofran) 4 mg IVPUSH Q4H PRN PRN Reason: Nausea/Vomiting Last Admin: 12/07/19 09:53 Dose: 4 mg Documented by: Sodium Chloride (Saline Flush) 10 ml FLUSH ASDIRECTED PRN PRN Reason: Keep Vein Open Last Admin: 12/06/19 15:48 Dose: 10 ml Documented by: Sodium Chloride (Saline Flush) 2.5 ml FLUSH ASDIRECTED PRN PRN Reason: Keep Vein Open Last Admin: 12/06/19 15:48 Dose: 2.5 ml Documented by: Discontinued Medications Remdesivir 200 mg/ Sodium (Chloride) 250 mls @ 250 mls/hr IV ONETIME ONE Stop: 12/06/19 18:20 Last Admin: 12/06/19 23:06 Dose: Not Given Documented by: Remdesivir 100 mg/ Sodium (Chloride) 100 mls @ 100 mls/hr IV Q24H QUANG Remdesivir 200 mg/ Sodium (Chloride) 250 mls @ 250 mls/hr IV ONETIME ONE Stop: 12/06/19 23:29 Last Admin: 12/06/19 23:07 Dose: 250 mls/hr Documented by: Iopamidol ([id number] (76%)) 50 ml IVPUSH ONETIME STA Stop: 12/06/19 19:35 Last Admin: 12/06/19 19:34 Dose: 50 ml Documented by: Morphine Sulfate (Morphine) 4 mg IVPUSH ONETIME ONE Stop: 12/06/19 15:37 Last Admin: 12/06/19 15:47 Dose: 4 mg Documented by: Ondansetron HCl (Zofran) 4 mg IVPUSH ONETIME ONE Stop: 12/06/19 15:37 Last Admin: 12/06/19 15:47 Dose: 4 mg Documented by: Prochlorperazine Edisylate (Compazine) 10 mg IM ONETIME ONE Stop: 12/06/19 16:49 Last Admin: 12/06/19 16:58 Dose: 10 mg Documented by: - Exam Quality Assessment: Supplemental Oxygen General: Alert, Oriented, Mild Distress Neck: Supple Lungs: Decreased Breath Sounds, Rales Cardiovascular: Regular Rate, Regular Rhythm GI/Abdominal Exam: Normal Bowel Sounds, Soft, Non-Tender Sepsis Event Note - Evaluation Sepsis Screening Result: No Definite Risk - Focused Exam Vital Signs: Vital Signs Temp Pulse Resp BP Pulse Ox 12/07/19 07:57 36.1 C 56 L 122/81 92 L 12/07/19 04:00 36.1 C 59 L 17 110/65 93 L 12/07/19 00:35 36.1 C 60 18 109/63 95 - Problem List & Annotations (1) Acute hypoxemic respiratory failure due to COVID-19 SNOMED Code(s): 209639897 Code(s): U07.1 - COVID-19; J96.01 - ACUTE RESPIRATORY FAILURE WITH HYPOXIA Status: Acute Current Visit: Yes (2) COVID-19 SNOMED Code(s): 803468267 Code(s): U07.1 - COVID-19 Status: Acute Current Visit: No (3) Hypothyroidism SNOMED Code(s): 41222943 Code(s): E03.9 - HYPOTHYROIDISM, UNSPECIFIED Status: Acute Current Visit: Yes - Problem List Review Problem List Initiated/Reviewed/Updated: Yes - My Orders Last 24 Hours: My Active Orders 12/06/19 Dinner Regular Diet [DIET] 12/06/19 18:55 Ambulate [RC] ASDIRECTED Oxygen Therapy [RC] PRN Pulse Oximetry [RC] PRN VTE/DVT Education [RC] PER UNIT ROUTINE Vital Signs [RC] Q4H Acetaminophen [TylenoL] 650 mg PO Q4H PRN Ondansetron [Zofran] 4 mg IVPUSH Q4H PRN Sequential Compression Device [OM.PC] Per Unit Routine Resuscitation Status Routine 12/06/19 18:56 Antiembolic Devices [RC] PER UNIT ROUTINE 12/06/19 18:58 RT Post Treatment Assessment [RC] Click to Edit RT Pre-Treatment Assessment [RC] Click to Edit Albuterol/Ipratropium [Combivent Respimat] See Dose Instructions INH Q4H PRN 12/06/19 19:00 Enoxaparin [Lovenox] 40 mg SUBCUT Q12H dexAMETHasone 6 mg PO DAILY 12/06/19 19:10 Telemetry Monitoring [Cardiac Monitoring] [RC] Q8H 12/07/19 09:54 UA W/MERRICK RFLX IF INDICATED [URIN] Routine 12/07/19 21:00 Remdesivir (Eua) [Remdesivir (EUA)] 100 mg Sodium Chloride 0.9% [Normal Saline] 100 ml IV Q24H 12/08/19 07:30 Levothyroxine 100 mcg PO ACBREAKFAST - Assessment Assessment:: 64 y/o F admitted for acute hypoxic respiratory failure cont oxygenation via NC, currently on 2L cont Remdesivir cont dexamethasone cont Lovenox cont synthroid start Guaifenesin monitor and replete electrolytes
[2019-12-07] MEDS ORDERED: diphenhydrAMINE 50 MG/ML SDV IVPUSH ONE (20:35)
[2019-12-07] MEDS: REMDESIVIR 100 MG in Sodium Chloride 0.9% 100 ML IV SCH (20:46)
[2019-12-07] MEDS: Lactated Ringers 1,000 ML IV SCH (21:51)
[2019-12-08] MEDS: guaiFENesin/Dextromethorphan 100-10 MG/5 ML Soln 10 ML Cup PO PRN ×3 (05:24→22:57)
[2019-12-08] MEDS: Lactated Ringers 1,000 ML IV SCH ×2 (06:11→06:13)
[2019-12-08 06:20] LABS: BLOOD UREA NITROGEN,BUN 30 mg/dL (7.0-18.0); CARBON DIOXIDE,CO2 25.1 mmol/L (21.0-32.0); CHLORIDE,CL 109 mmol/L (98-107); GLUCOSE RANDOM 136 mg/dL (74-106); SODIUM,NA 143 mmol/L (136-145)
[2019-12-08] MEDS: Enoxaparin 40 MG/0.4 ML Syringe SUBCUT SCH ×2 (06:37→18:28)
[2019-12-08] MEDS: Levothyroxine 100 MCG Tab PO SCH (06:39)
[2019-12-08] MEDS: Dexamethasone 4 MG Tab PO SCH (09:00)
--- NOTE | 2019-12-08 12:47 | PCM.PN ---
- General Info Date of Service: 12/08/19 - Review of Systems Systems Review Comment:: feeling better, reports fatigue, did not sleep well last night. - Patient Data Vitals - Most Recent: Last Vital Signs Temp 35.8 C L 12/08/19 11:58 Pulse 50 L 12/08/19 11:58 Resp 18 12/08/19 11:58 BP 117/69 12/08/19 11:58 Pulse Ox 92 L 12/08/19 11:58 Weight - Most Recent: 147.327 kg I&O - Last 24 Hours: Intake & Output 12/07/19 12/08/19 12/08/19 22:59 06:59 14:59 Intake Total 840 2450 Output Total 550 300 Balance 290 2150 Lab Results Last 24 Hours: Laboratory Results - last 24 hr 12/06/19 12/08/19 12/08/19 Range/Units 15:40 05:37 05:37 WBC 5.93 (4.0-11.0) K/uL RBC 4.51 (4.30-5.90) M/uL Hgb 12.8 (12.0-16.0) g/dL Hct 40.4 (36.0-46.0) % MCV 89.6 (80.0-98.0) fL MCH 28.4 (27.0-32.0) pg MCHC 31.7 (31.0-37.0) g/dL RDW Std Deviation 42.4 (28.0-62.0) fl RDW Coeff of Von 13 (11.0-15.0) % Plt Count 206 (150-400) K/uL MPV 10.20 (7.40-12.00) fL Neut % (Auto) 79.1 (48.0-80.0) % Lymph % (Auto) 13.3 L (16.0-40.0) % [place] % (Auto) 7.3 (0.0-15.0) % Eos % (Auto) 0.0 (0.0-7.0) % Baso % (Auto) 0.3 (0.0-1.5) % Neut # (Auto) 4.7 (1.4-5.7) K/uL Lymph # (Auto) 0.8 (0.6-2.4) K/uL [place] # (Auto) 0.4 (0.0-0.8) K/uL Eos # (Auto) 0.0 (0.0-0.7) K/uL Baso # (Auto) 0.0 (0.0-0.1) K/uL Nucleated RBC % 0.0 /100WBC Nucleated RBCs # 0 K/uL Sodium 143 (136-145) mmol/L Potassium 4.0 (3.5-5.1) mmol/L Chloride 109 H (98-107) mmol/L Carbon Dioxide 25.1 (21.0-32.0) mmol/L BUN 30 H (7.0-18.0) mg/dL Creatinine 0.9 (0.6-1.0) mg/dL Est Cr Clr Drug Dosing 72.44 mL/min Estimated GFR (MDRD) > 60.0 ml/min Glucose 136 H (74-106) mg/dL Calcium 8.5 (8.5-10.1) mg/dL Phosphorus 3.5 (2.6-4.7) mg/dL Magnesium 2.4 (1.8-2.4) mg/dL Total Bilirubin 0.2 (0.2-1.0) mg/dL AST 51 H (15-37) IU/L ALT 99 H (14-63) IU/L Alkaline Phosphatase 152 H (46-116) U/L Total Protein 6.6 (6.4-8.2) g/dL Albumin 2.9 L (3.4-5.0) g/dL Globulin 3.7 (2.6-4.0) g/dL Albumin/Globulin Ratio 0.8 L (0.9-1.6) Procalcitonin <0.05 (<0.10) ng/mL Med Orders - Current: Current Medications Acetaminophen (Tylenol) 650 mg PO Q4H PRN PRN Reason: Pain (Mild 1-3)/fever Last Admin: 12/07/19 13:18 Dose: 650 mg Documented by: Albuterol/Ipratropium (Combivent Respimat) 0 gm INH Q4H PRN PRN Reason: Dyspnea Last Admin: 12/07/19 17:54 Dose: 4 gm Documented by: Dexamethasone (Dexamethasone) 6 mg PO DAILY [facility] Last Admin: 12/08/19 09:00 Dose: 6 mg Documented by: Enoxaparin Sodium (Lovenox) 40 mg SUBCUT Q12H [facility] Last Admin: 12/08/19 06:37 Dose: 40 mg Documented by: Guaifenesin/Dextromethorphan (Robitussin Dm) 10 ml PO Q4H PRN PRN Reason: Cough Last Admin: 12/08/19 11:59 Dose: 10 ml Documented by: Remdesivir 100 mg/ Sodium (Chloride) 100 mls @ 100 mls/hr IV Q24H [facility] Stop: 12/10/19 22:00 Last Admin: 12/07/19 20:46 Dose: 100 mls/hr Documented by: Lactated Ringer's (Ringers, Lactated) 1,000 mls @ 125 mls/hr IV ASDIRECTED [facility] Last Admin: 12/08/19 06:13 Dose: 125 mls/hr Documented by: Levothyroxine Sodium (Synthroid) 100 mcg PO ACBREAKFAST [facility] Last Admin: 12/08/19 06:39 Dose: 100 mcg Documented by: Ondansetron HCl (Zofran) 4 mg IVPUSH Q4H PRN PRN Reason: Nausea/Vomiting Last Admin: 12/07/19 09:53 Dose: 4 mg Documented by: Sodium Chloride (Saline Flush) 10 ml FLUSH ASDIRECTED PRN PRN Reason: Keep Vein Open Last Admin: 12/06/19 15:48 Dose: 10 ml Documented by: Sodium Chloride (Saline Flush) 2.5 ml FLUSH ASDIRECTED PRN PRN Reason: Keep Vein Open Last Admin: 12/06/19 15:48 Dose: 2.5 ml Documented by: Discontinued Medications Diphenhydramine HCl (Benadryl) 25 mg IVPUSH ONETIME ONE Stop: 12/07/19 20:36 Last Admin: 12/07/19 20:50 Dose: 25 mg Documented by: Remdesivir 200 mg/ Sodium (Chloride) 250 mls @ 250 mls/hr IV ONETIME ONE Stop: 12/06/19 18:20 Last Admin: 12/06/19 23:06 Dose: Not Given Documented by: Remdesivir 100 mg/ Sodium (Chloride) 100 mls @ 100 mls/hr IV Q24H [facility] Remdesivir 200 mg/ Sodium (Chloride) 250 mls @ 250 mls/hr IV ONETIME ONE Stop: 12/06/19 23:29 Last Admin: 12/06/19 23:07 Dose: 250 mls/hr Documented by: Iopamidol (Isovue-370 (76%)) 50 ml IVPUSH ONETIME STA Stop: 12/06/19 19:35 Last Admin: 12/06/19 19:34 Dose: 50 ml Documented by: Morphine Sulfate (Morphine) 4 mg IVPUSH ONETIME ONE Stop: 12/06/19 15:37 Last Admin: 12/06/19 15:47 Dose: 4 mg Documented by: Ondansetron HCl (Zofran) 4 mg IVPUSH ONETIME ONE Stop: 12/06/19 15:37 Last Admin: 12/06/19 15:47 Dose: 4 mg Documented by: Prochlorperazine Edisylate (Compazine) 10 mg IM ONETIME ONE Stop: 12/06/19 16:49 Last Admin: 12/06/19 16:58 Dose: 10 mg Documented by: - Exam General: Alert, Oriented Lungs: Clear to Auscultation, Normal Respiratory Effort Cardiovascular: Regular Rate, Regular Rhythm GI/Abdominal Exam: Soft, Non-Tender, No Distention Extremities: Non-Tender, No Pedal Edema Skin: Warm, Dry, Intact Neurological: No New Focal Deficit Sepsis Event Note - Evaluation Sepsis Screening Result: No Definite Risk - Focused Exam Vital Signs: Vital Signs Temp Pulse Resp BP Pulse Ox 12/08/19 11:58 35.8 C L 50 L 18 117/69 92 L 12/08/19 09:01 35.7 C L 43 L 18 140/81 95 12/08/19 05:18 36.1 C 54 L 18 123/57 L 93 L - Problem List Review Problem List Initiated/Reviewed/Updated: Yes - My Orders Last 24 Hours: My Active Orders 12/08/19 12:28 CMP [COMPREHENSIVE METABOLIC PN,CMP] [CHEM] DAILY 12/09/19 05:11 CBC WITH AUTO DIFF [HEME] AM 12/09/19 12:28 CMP [COMPREHENSIVE METABOLIC PN,CMP] [CHEM] DAILY 12/10/19 12:28 CMP [COMPREHENSIVE METABOLIC PN,CMP] [CHEM] DAILY 12/11/19 12:28 CMP [COMPREHENSIVE METABOLIC PN,CMP] [CHEM] DAILY - Plan Plan:: 64 y/o F admitted for Acute hypoxic respiratory failure sec to COVID cont oxygenation via NC, currently on 1L, continue Remdesivir, dexamethasone, lovenox, will monitor LFTs.
[2019-12-08 16:26] LABS: BLOOD UREA NITROGEN,BUN 24 mg/dL (7.0-18.0); CHLORIDE,CL 109 mmol/L (98-107); GLUCOSE RANDOM 154 mg/dL (74-106); POTASSIUM,K 4.3 mmol/L (3.5-5.1); SODIUM,NA 144 mmol/L (136-145)
[2019-12-08] MEDS: REMDESIVIR 100 MG in Sodium Chloride 0.9% 100 ML IV SCH (21:00)
[2019-12-08] MEDS: Albuterol/Ipratropium 4 GM Inhalation Spray INH PRN (22:58)
[2019-12-09] MEDS: Albuterol/Ipratropium 4 GM Inhalation Spray INH PRN ×2 (04:41→08:58)
[2019-12-09] MEDS: Levothyroxine 100 MCG Tab PO SCH (06:32)
[2019-12-09] MEDS: Enoxaparin 40 MG/0.4 ML Syringe SUBCUT SCH ×2 (06:32→20:13)
[2019-12-09 06:42] LABS: BLOOD UREA NITROGEN,BUN 21 mg/dL (7.0-18.0); CHLORIDE,CL 110 mmol/L (98-107); GLUCOSE RANDOM 111 mg/dL (74-106); POTASSIUM,K 3.8 mmol/L (3.5-5.1); SODIUM,NA 145 mmol/L (136-145)
[2019-12-09] MEDS: Dexamethasone 4 MG Tab PO SCH (08:24)
[2019-12-09] MEDS ORDERED: Docusate Sodium 100 MG Cap PO PRN (10:48)
[2019-12-09] MEDS: Carboxymethylcellulose Sodium 0.5% Ophth Soln 0.4 ML UD Box of 30 EYEBOTH PRN ×2 (11:08→22:11)
--- NOTE | 2019-12-09 15:07 | PCM.PN ---
- General Info Date of Service: 12/09/19 - Review of Systems Systems Review Comment:: reports fatigue, shortness of breath on exertion, feeling better than yesterday - Patient Data Vitals - Most Recent: Last Vital Signs Temp 36.1 C 12/09/19 11:11 Pulse 60 12/09/19 11:11 Resp 17 12/09/19 11:11 BP 123/59 L 12/09/19 11:11 Pulse Ox 94 L 12/09/19 11:11 Weight - Most Recent: 147.327 kg I&O - Last 24 Hours: Intake & Output 12/09/19 12/09/19 12/09/19 06:59 14:59 22:59 Intake Total 1100 Output Total 900 Balance 200 Lab Results Last 24 Hours: Laboratory Results - last 24 hr 12/08/19 12/09/19 12/09/19 Range/Units 14:39 05:58 05:58 WBC 3.98 L (4.0-11.0) K/uL RBC 4.26 L (4.30-5.90) M/uL Hgb 12.0 (12.0-16.0) g/dL Hct 38.2 (36.0-46.0) % MCV 89.7 (80.0-98.0) fL MCH 28.2 (27.0-32.0) pg MCHC 31.4 (31.0-37.0) g/dL RDW Std Deviation 42.4 (28.0-62.0) fl RDW Coeff of Von 13 (11.0-15.0) % Plt Count 214 (150-400) K/uL MPV 10.60 (7.40-12.00) fL Neut % (Auto) 68.5 (48.0-80.0) % Lymph % (Auto) 23.1 (16.0-40.0) % [place] % (Auto) 7.8 (0.0-15.0) % Eos % (Auto) 0.3 (0.0-7.0) % Baso % (Auto) 0.3 (0.0-1.5) % Neut # (Auto) 2.7 (1.4-5.7) K/uL Lymph # (Auto) 0.9 (0.6-2.4) K/uL [place] # (Auto) 0.3 (0.0-0.8) K/uL Eos # (Auto) 0.0 (0.0-0.7) K/uL Baso # (Auto) 0.0 (0.0-0.1) K/uL Nucleated RBC % 0.0 /100WBC Nucleated RBCs # 0 K/uL Sodium 144 145 (136-145) mmol/L Potassium 4.3 3.8 (3.5-5.1) mmol/L Chloride 109 H 110 H (98-107) mmol/L Carbon Dioxide 29.0 28.0 (21.0-32.0) mmol/L BUN 24 H 21 H (7.0-18.0) mg/dL Creatinine 0.9 0.8 (0.6-1.0) mg/dL Est Cr Clr Drug Dosing 72.44 81.49 mL/min Estimated GFR (MDRD) > 60.0 > 60.0 ml/min Glucose 154 H 111 H (74-106) mg/dL Calcium 8.2 L 7.9 L (8.5-10.1) mg/dL Total Bilirubin 0.2 0.3 (0.2-1.0) mg/dL AST 36 29 (15-37) IU/L ALT 91 H 73 H (14-63) IU/L Alkaline Phosphatase 141 H 123 H (46-116) U/L Total Protein 6.5 5.9 L (6.4-8.2) g/dL Albumin 2.9 L 2.7 L (3.4-5.0) g/dL Globulin 3.6 3.2 (2.6-4.0) g/dL Albumin/Globulin Ratio 0.8 L 0.8 L (0.9-1.6) Med Orders - Current: Current Medications Acetaminophen (Tylenol) 650 mg PO Q4H PRN PRN Reason: Pain (Mild 1-3)/fever Last Admin: 12/07/19 13:18 Dose: 650 mg Documented by: Albuterol/Ipratropium (Combivent Respimat) 0 gm INH Q4H PRN PRN Reason: Dyspnea Last Admin: 12/09/19 08:58 Dose: 1 puff Documented by: Artificial Tears (Refresh Plus 0.5%) 0 each EYEBOTH ASDIRECTED PRN PRN Reason: Dry Eyes Last Admin: 12/09/19 11:08 Dose: 1 drop Documented by: Dexamethasone (Dexamethasone) 6 mg PO DAILY [facility] Last Admin: 12/09/19 08:24 Dose: 6 mg Documented by: Docusate Sodium (Colace) 100 mg PO DAILY PRN PRN Reason: Constipation Last Admin: 12/09/19 11:07 Dose: 100 mg Documented by: Enoxaparin Sodium (Lovenox) 40 mg SUBCUT Q12H [facility] Last Admin: 12/09/19 06:32 Dose: 40 mg Documented by: Guaifenesin/Dextromethorphan (Robitussin Dm) 10 ml PO Q4H PRN PRN Reason: Cough Last Admin: 12/08/19 22:57 Dose: 10 ml Documented by: Remdesivir 100 mg/ Sodium (Chloride) 100 mls @ 100 mls/hr IV Q24H [facility] Stop: 12/10/19 22:00 Last Admin: 12/08/19 21:00 Dose: 100 mls/hr Documented by: Levothyroxine Sodium (Synthroid) 100 mcg PO ACBREAKFAST [facility] Last Admin: 12/09/19 06:32 Dose: 100 mcg Documented by: Ondansetron HCl (Zofran) 4 mg IVPUSH Q4H PRN PRN Reason: Nausea/Vomiting Last Admin: 12/07/19 09:53 Dose: 4 mg Documented by: Sodium Chloride (Saline Flush) 10 ml FLUSH ASDIRECTED PRN PRN Reason: Keep Vein Open Last Admin: 12/06/19 15:48 Dose: 10 ml Documented by: Sodium Chloride (Saline Flush) 2.5 ml FLUSH ASDIRECTED PRN PRN Reason: Keep Vein Open Last Admin: 12/06/19 15:48 Dose: 2.5 ml Documented by: Discontinued Medications Diphenhydramine HCl (Benadryl) 25 mg IVPUSH ONETIME ONE Stop: 12/07/19 20:36 Last Admin: 12/07/19 20:50 Dose: 25 mg Documented by: Remdesivir 200 mg/ Sodium (Chloride) 250 mls @ 250 mls/hr IV ONETIME ONE Stop: 12/06/19 18:20 Last Admin: 12/06/19 23:06 Dose: Not Given Documented by: Remdesivir 100 mg/ Sodium (Chloride) 100 mls @ 100 mls/hr IV Q24H [facility] Remdesivir 200 mg/ Sodium (Chloride) 250 mls @ 250 mls/hr IV ONETIME ONE Stop: 12/06/19 23:29 Last Admin: 12/06/19 23:07 Dose: 250 mls/hr Documented by: Lactated Ringer's (Ringers, Lactated) 1,000 mls @ 125 mls/hr IV ASDIRECTED [facility] Last Admin: 12/08/19 06:13 Dose: 125 mls/hr Documented by: Iopamidol (Isovue-370 (76%)) 50 ml IVPUSH ONETIME STA Stop: 12/06/19 19:35 Last Admin: 12/06/19 19:34 Dose: 50 ml Documented by: Morphine Sulfate (Morphine) 4 mg IVPUSH ONETIME ONE Stop: 12/06/19 15:37 Last Admin: 12/06/19 15:47 Dose: 4 mg Documented by: Ondansetron HCl (Zofran) 4 mg IVPUSH ONETIME ONE Stop: 12/06/19 15:37 Last Admin: 12/06/19 15:47 Dose: 4 mg Documented by: Prochlorperazine Edisylate (Compazine) 10 mg IM ONETIME ONE Stop: 12/06/19 16:49 Last Admin: 12/06/19 16:58 Dose: 10 mg Documented by: - Exam General: Alert, Oriented Neck: Supple Lungs: Clear to Auscultation, Normal Respiratory Effort Cardiovascular: Regular Rate, Regular Rhythm GI/Abdominal Exam: Soft, Non-Tender, No Distention Extremities: Non-Tender, No Pedal Edema Skin: Warm, Dry, Intact Neurological: No New Focal Deficit Sepsis Event Note - Evaluation Sepsis Screening Result: No Definite Risk - Focused Exam Vital Signs: Vital Signs Temp Pulse Resp BP Pulse Ox 12/09/19 11:11 36.1 C 60 17 123/59 L 94 L 12/09/19 08:27 36.3 C 44 L 16 124/63 94 L 12/09/19 04:00 36.6 C 50 L 18 140/70 95 - Problem List Review Problem List Initiated/Reviewed/Updated: Yes - My Orders Last 24 Hours: My Active Orders 12/09/19 00:28 Carboxymethylcellulose Sodium [Refresh Plus 0.5%] 0 each EYEBOTH ASDIRECTED PRN 12/09/19 10:48 Docusate Sodium [Colace] 100 mg PO DAILY PRN 12/10/19 05:11 CBC WITH AUTO DIFF [HEME] AM 12/10/19 12:28 CMP [COMPREHENSIVE METABOLIC PN,CMP] [CHEM] DAILY 12/11/19 12:28 CMP [COMPREHENSIVE METABOLIC PN,CMP] [CHEM] DAILY - Plan Plan:: 64 y/o F admitted for Acute hypoxic respiratory failure sec to COVID continue to wean oxygenation via NC as tolerated, currently on 0.5L, continue Remdesivir, dexamethasone, lovenox, will monitor LFTs.
[2019-12-09] MEDS: REMDESIVIR 100 MG in Sodium Chloride 0.9% 100 ML IV SCH (20:38)
[2019-12-10] MEDS: Enoxaparin 40 MG/0.4 ML Syringe SUBCUT SCH ×2 (06:46→18:00)
[2019-12-10] MEDS: Levothyroxine 100 MCG Tab PO SCH (06:46)
[2019-12-10] MEDS: Dexamethasone 4 MG Tab PO SCH (08:10)
[2019-12-10 13:41] LABS: BLOOD UREA NITROGEN,BUN 20 mg/dL (7.0-18.0); CARBON DIOXIDE,CO2 29.3 mmol/L (21.0-32.0); CHLORIDE,CL 109 mmol/L (98-107); GLUCOSE RANDOM 122 mg/dL (74-106); POTASSIUM,K 3.7 mmol/L (3.5-5.1); SODIUM,NA 145 mmol/L (136-145)
--- NOTE | 2019-12-10 13:44 | PCM.PN ---
- General Info Date of Service: 12/10/19 - Review of Systems Systems Review Comment:: feeling better, shortness of breath has improved - Patient Data Vitals - Most Recent: Last Vital Signs Temp 36.6 C 12/10/19 12:08 Pulse 55 L 12/10/19 12:08 Resp 17 12/10/19 12:08 BP 122/73 12/10/19 12:08 Pulse Ox 96 12/10/19 12:08 Weight - Most Recent: 147.327 kg I&O - Last 24 Hours: Intake & Output 12/09/19 12/10/19 12/10/19 22:59 06:59 14:59 Intake Total 860 760 Output Total 550 850 Balance 310 -90 Lab Results Last 24 Hours: Laboratory Results - last 24 hr 12/10/19 Range/Units 06:00 WBC 4.46 (4.0-11.0) K/uL RBC 4.58 (4.30-5.90) M/uL Hgb 13.0 (12.0-16.0) g/dL Hct 40.8 (36.0-46.0) % MCV 89.1 (80.0-98.0) fL MCH 28.4 (27.0-32.0) pg MCHC 31.9 (31.0-37.0) g/dL RDW Std Deviation 42.3 (28.0-62.0) fl RDW Coeff of Von 13 (11.0-15.0) % Plt Count 249 (150-400) K/uL MPV 10.00 (7.40-12.00) fL Neut % (Auto) 68.7 (48.0-80.0) % Lymph % (Auto) 25.1 (16.0-40.0) % [place] % (Auto) 5.8 (0.0-15.0) % Eos % (Auto) 0.2 (0.0-7.0) % Baso % (Auto) 0.2 (0.0-1.5) % Neut # (Auto) 3.1 (1.4-5.7) K/uL Lymph # (Auto) 1.1 (0.6-2.4) K/uL [place] # (Auto) 0.3 (0.0-0.8) K/uL Eos # (Auto) 0.0 (0.0-0.7) K/uL Baso # (Auto) 0.0 (0.0-0.1) K/uL Nucleated RBC % 0.0 /100WBC Nucleated RBCs # 0 K/uL Med Orders - Current: Current Medications Acetaminophen (Tylenol) 650 mg PO Q4H PRN PRN Reason: Pain (Mild 1-3)/fever Last Admin: 12/07/19 13:18 Dose: 650 mg Documented by: Albuterol/Ipratropium (Combivent Respimat) 0 gm INH Q4H PRN PRN Reason: Dyspnea Last Admin: 12/09/19 08:58 Dose: 1 puff Documented by: Artificial Tears (Refresh Plus 0.5%) 0 each EYEBOTH ASDIRECTED PRN PRN Reason: Dry Eyes Last Admin: 12/09/19 22:11 Dose: 1 drop Documented by: Dexamethasone (Dexamethasone) 6 mg PO DAILY [facility] Last Admin: 12/10/19 08:10 Dose: 6 mg Documented by: Docusate Sodium (Colace) 100 mg PO DAILY PRN PRN Reason: Constipation Last Admin: 12/09/19 11:07 Dose: 100 mg Documented by: Enoxaparin Sodium (Lovenox) 40 mg SUBCUT Q12H [facility] Last Admin: 12/10/19 06:46 Dose: 40 mg Documented by: Guaifenesin/Dextromethorphan (Robitussin Dm) 10 ml PO Q4H PRN PRN Reason: Cough Last Admin: 12/08/19 22:57 Dose: 10 ml Documented by: Remdesivir 100 mg/ Sodium (Chloride) 100 mls @ 100 mls/hr IV Q24H [facility] Stop: 12/10/19 22:00 Last Admin: 12/09/19 20:38 Dose: 100 mls/hr Documented by: Levothyroxine Sodium (Synthroid) 100 mcg PO ACBREAKFAST [facility] Last Admin: 12/10/19 06:46 Dose: 100 mcg Documented by: Ondansetron HCl (Zofran) 4 mg IVPUSH Q4H PRN PRN Reason: Nausea/Vomiting Last Admin: 12/07/19 09:53 Dose: 4 mg Documented by: Sodium Chloride (Saline Flush) 10 ml FLUSH ASDIRECTED PRN PRN Reason: Keep Vein Open Last Admin: 12/06/19 15:48 Dose: 10 ml Documented by: Sodium Chloride (Saline Flush) 2.5 ml FLUSH ASDIRECTED PRN PRN Reason: Keep Vein Open Last Admin: 12/06/19 15:48 Dose: 2.5 ml Documented by: Discontinued Medications Diphenhydramine HCl (Benadryl) 25 mg IVPUSH ONETIME ONE Stop: 12/07/19 20:36 Last Admin: 12/07/19 20:50 Dose: 25 mg Documented by: Remdesivir 200 mg/ Sodium (Chloride) 250 mls @ 250 mls/hr IV ONETIME ONE Stop: 12/06/19 18:20 Last Admin: 12/06/19 23:06 Dose: Not Given Documented by: Remdesivir 100 mg/ Sodium (Chloride) 100 mls @ 100 mls/hr IV Q24H [facility] Remdesivir 200 mg/ Sodium (Chloride) 250 mls @ 250 mls/hr IV ONETIME ONE Stop: 12/06/19 23:29 Last Admin: 12/06/19 23:07 Dose: 250 mls/hr Documented by: Lactated Ringer's (Ringers, Lactated) 1,000 mls @ 125 mls/hr IV ASDIRECTED [facility] Last Admin: 12/08/19 06:13 Dose: 125 mls/hr Documented by: Iopamidol (Isovue-370 (76%)) 50 ml IVPUSH ONETIME STA Stop: 12/06/19 19:35 Last Admin: 12/06/19 19:34 Dose: 50 ml Documented by: Morphine Sulfate (Morphine) 4 mg IVPUSH ONETIME ONE Stop: 12/06/19 15:37 Last Admin: 12/06/19 15:47 Dose: 4 mg Documented by: Ondansetron HCl (Zofran) 4 mg IVPUSH ONETIME ONE Stop: 12/06/19 15:37 Last Admin: 12/06/19 15:47 Dose: 4 mg Documented by: Prochlorperazine Edisylate (Compazine) 10 mg IM ONETIME ONE Stop: 12/06/19 16:49 Last Admin: 12/06/19 16:58 Dose: 10 mg Documented by: - Exam General: Alert, Oriented Neck: Supple Lungs: Clear to Auscultation, Normal Respiratory Effort Cardiovascular: Regular Rate, Regular Rhythm GI/Abdominal Exam: Soft, Non-Tender, No Distention Extremities: Non-Tender, No Pedal Edema Skin: Warm, Dry, Intact Neurological: No New Focal Deficit Sepsis Event Note - Evaluation Sepsis Screening Result: No Definite Risk - Focused Exam Vital Signs: Vital Signs Temp Pulse Resp BP Pulse Ox Pulse Ox 12/10/19 12:08 36.6 C 55 L 17 122/73 96 12/10/19 08:25 158/79 H 12/10/19 08:04 36.4 C 60 16 163/89 H 95 12/10/19 06:00 94 L 12/10/19 03:58 36.2 C 50 L 19 135/83 94 L - Problem List Review Problem List Initiated/Reviewed/Updated: Yes - My Orders Last 24 Hours: My Active Orders 12/10/19 13:10 CMP [COMPREHENSIVE METABOLIC PN,CMP] [CHEM] DAILY 12/10/19 13:41 CMP [COMPREHENSIVE METABOLIC PN,CMP] [CHEM] Routine 12/11/19 05:11 BASIC METABOLIC PANEL,BMP [CHEM] AM CBC WITH AUTO DIFF [HEME] AM - Plan Plan:: 64 y/o F admitted for Acute hypoxic respiratory failure sec to COVID continue to wean oxygenation via NC as tolerated, currently on RA, continue Remdesivir, dexamethasone, lovenox, will monitor LFTs. Anticipate discharge home tomorrow.
[2019-12-10] MEDS: REMDESIVIR 100 MG in Sodium Chloride 0.9% 100 ML IV SCH (20:54)
[2019-12-11] MEDS: Levothyroxine 100 MCG Tab PO SCH ×2 (06:06→08:18)
[2019-12-11] MEDS: Enoxaparin 40 MG/0.4 ML Syringe SUBCUT SCH (06:06)
[2019-12-11 06:34] LABS: BLOOD UREA NITROGEN,BUN 16 mg/dL (7.0-18.0); CARBON DIOXIDE,CO2 28.6 mmol/L (21.0-32.0); CHLORIDE,CL 109 mmol/L (98-107); GLUCOSE RANDOM 108 mg/dL (74-106); POTASSIUM,K 3.7 mmol/L (3.5-5.1); SODIUM,NA 145 mmol/L (136-145)
[2019-12-11] MEDS: Dexamethasone 4 MG Tab PO SCH (08:17)
--- NOTE | 2019-12-11 12:41 | PCM.DCSUM1 ---
Discharge Summary - Discharge Data Discharge Date: 12/11/19 Discharge Disposition: Home, Self-Care 01 Condition: Good - Referral to Home Health Primary Care Physician: PCP None - Patient Summary/Data Hospital Course: 64-year-old female with PMH of hypothyroidism, known COVID-19 positive presenting with worsening cough and shortness of breath from the respiratory clinic. She was admitted for COVID-19 with respiratory failure requiring supplemental oxygen via NC. She was treated with Remdesivir and dexamethasone for five days. She did have improvement in her symptoms and was weaned off supplemental oxygen. She is to be discharge today to follow up with [facility]. Patient was instructed to continue to self isolate at home. - Patient Instructions Diet: Usual Diet as Tolerated - Discharge Plan *PRESCRIPTION DRUG MONITORING PROGRAM REVIEWED*: Yes (no recent sedative or narcotic Rx's) *COPY OF PRESCRIPTION DRUG MONITORING REPORT IN PATIENT VERNA: Not Applicable Prescriptions/Med Rec: dexAMETHasone [Dexamethasone] 6 mg PO DAILY #5 tab Home Medications: Home Meds Levothyroxine 100 mcg PO ACBREAKFAST 09/08/18 [History] dexAMETHasone [Dexamethasone] 6 mg PO DAILY #5 tab 12/11/19 [Rx] Patient Handouts: Hypoxia, COVID-19 Frequently Asked Questions, COVID-19 Referrals: Guy Maurer MD [Physician] - 12/25/19 8:00 am (Please arrive 15 minutes early with your identification, insurance cards and your own facemask.) - Discharge Summary/Plan Comment DC Time >30 min.: No - Patient Data Vitals - Most Recent: Last Vital Signs Temp 36.4 C 12/11/19 12:00 Pulse 55 L 12/11/19 12:00 Resp 16 12/11/19 12:00 BP 118/60 12/11/19 12:00 Pulse Ox 92 L 12/11/19 12:00 Weight - Most Recent: 147.327 kg I&O - Last 24 hours: Intake & Output 12/10/19 12/11/19 12/11/19 22:59 06:59 14:59 Intake Total 1076 450 Output Total 1100 1100 Balance -24 -650 Lab Results - Last 24 hrs: Laboratory Results - last 24 hr 12/10/19 12/11/19 12/11/19 Range/Units 13:10 05:45 05:45 WBC 5.27 (4.0-11.0) K/uL RBC 4.43 (4.30-5.90) M/uL Hgb 12.5 (12.0-16.0) g/dL Hct 39.5 (36.0-46.0) % MCV 89.2 (80.0-98.0) fL MCH 28.2 (27.0-32.0) pg MCHC 31.6 (31.0-37.0) g/dL RDW Std Deviation 41.9 (28.0-62.0) fl RDW Coeff of Von 13 (11.0-15.0) % Plt Count 258 (150-400) K/uL MPV 10.50 (7.40-12.00) fL Neut % (Auto) 72.3 (48.0-80.0) % Lymph % (Auto) 20.5 (16.0-40.0) % [place] % (Auto) 6.6 (0.0-15.0) % Eos % (Auto) 0.6 (0.0-7.0) % Baso % (Auto) 0.0 (0.0-1.5) % Neut # (Auto) 3.8 (1.4-5.7) K/uL Lymph # (Auto) 1.1 (0.6-2.4) K/uL [place] # (Auto) 0.4 (0.0-0.8) K/uL Eos # (Auto) 0.0 (0.0-0.7) K/uL Baso # (Auto) 0.0 (0.0-0.1) K/uL Nucleated RBC % 0.0 /100WBC Nucleated RBCs # 0 K/uL Sodium 145 145 (136-145) mmol/L Potassium 3.7 3.7 (3.5-5.1) mmol/L Chloride 109 H 109 H (98-107) mmol/L Carbon Dioxide 29.3 28.6 (21.0-32.0) mmol/L BUN 20 H 16 (7.0-18.0) mg/dL Creatinine 0.9 0.8 (0.6-1.0) mg/dL Est Cr Clr Drug Dosing 72.44 81.49 mL/min Estimated GFR (MDRD) > 60.0 > 60.0 ml/min Glucose 122 H 108 H (74-106) mg/dL Calcium 8.4 L 7.7 L (8.5-10.1) mg/dL Total Bilirubin 0.4 (0.2-1.0) mg/dL AST 35 (15-37) IU/L ALT 69 H (14-63) IU/L Alkaline Phosphatase 129 H (46-116) U/L Total Protein 6.3 L (6.4-8.2) g/dL Albumin 2.8 L (3.4-5.0) g/dL Globulin 3.5 (2.6-4.0) g/dL Albumin/Globulin Ratio 0.8 L (0.9-1.6) Med Orders - Current: Current Medications Acetaminophen (Tylenol) 650 mg PO Q4H PRN PRN Reason: Pain (Mild 1-3)/fever Last Admin: 12/07/19 13:18 Dose: 650 mg Documented by: Albuterol/Ipratropium (Combivent Respimat) 0 gm INH Q4H PRN PRN Reason: Dyspnea Last Admin: 12/09/19 08:58 Dose: 1 puff Documented by: Artificial Tears (Refresh Plus 0.5%) 0 each EYEBOTH ASDIRECTED PRN PRN Reason: Dry Eyes Last Admin: 12/09/19 22:11 Dose: 1 drop Documented by: Dexamethasone (Dexamethasone) 6 mg PO DAILY [facility] Last Admin: 12/11/19 08:17 Dose: 6 mg Documented by: Docusate Sodium (Colace) 100 mg PO DAILY PRN PRN Reason: Constipation Last Admin: 12/09/19 11:07 Dose: 100 mg Documented by: Enoxaparin Sodium (Lovenox) 40 mg SUBCUT Q12H [facility] Last Admin: 12/11/19 06:06 Dose: 40 mg Documented by: Guaifenesin/Dextromethorphan (Robitussin Dm) 10 ml PO Q4H PRN PRN Reason: Cough Last Admin: 12/08/19 22:57 Dose: 10 ml Documented by: Levothyroxine Sodium (Synthroid) 100 mcg PO ACBREAKFAST [facility] Last Admin: 12/11/19 08:18 Dose: Not Given Documented by: Ondansetron HCl (Zofran) 4 mg IVPUSH Q4H PRN PRN Reason: Nausea/Vomiting Last Admin: 12/07/19 09:53 Dose: 4 mg Documented by: Sodium Chloride (Saline Flush) 10 ml FLUSH ASDIRECTED PRN PRN Reason: Keep Vein Open Last Admin: 12/06/19 15:48 Dose: 10 ml Documented by: Sodium Chloride (Saline Flush) 2.5 ml FLUSH ASDIRECTED PRN PRN Reason: Keep Vein Open Last Admin: 12/06/19 15:48 Dose: 2.5 ml Documented by: Discontinued Medications Diphenhydramine HCl (Benadryl) 25 mg IVPUSH ONETIME ONE Stop: 12/07/19 20:36 Last Admin: 12/07/19 20:50 Dose: 25 mg Documented by: Remdesivir 200 mg/ Sodium (Chloride) 250 mls @ 250 mls/hr IV ONETIME ONE Stop: 12/06/19 18:20 Last Admin: 12/06/19 23:06 Dose: Not Given Documented by: Remdesivir 100 mg/ Sodium (Chloride) 100 mls @ 100 mls/hr IV Q24H [facility] Remdesivir 200 mg/ Sodium (Chloride) 250 mls @ 250 mls/hr IV ONETIME ONE Stop: 12/06/19 23:29 Last Admin: 12/06/19 23:07 Dose: 250 mls/hr Documented by: Remdesivir 100 mg/ Sodium (Chloride) 100 mls @ 100 mls/hr IV Q24H [facility] Stop: 12/10/19 22:00 Last Admin: 12/10/19 20:54 Dose: 100 mls/hr Documented by: Lactated Ringer's (Ringers, Lactated) 1,000 mls @ 125 mls/hr IV ASDIRECTED QUANG Last Admin: 12/08/19 06:13 Dose: 125 mls/hr Documented by: Iopamidol (Isovue-370 (76%)) 50 ml IVPUSH ONETIME STA Stop: 12/06/19 19:35 Last Admin: 12/06/19 19:34 Dose: 50 ml Documented by: Morphine Sulfate (Morphine) 4 mg IVPUSH ONETIME ONE Stop: 12/06/19 15:37 Last Admin: 12/06/19 15:47 Dose: 4 mg Documented by: Ondansetron HCl (Zofran) 4 mg IVPUSH ONETIME ONE Stop: 12/06/19 15:37 Last Admin: 12/06/19 15:47 Dose: 4 mg Documented by: Prochlorperazine Edisylate (Compazine) 10 mg IM ONETIME ONE Stop: 12/06/19 16:49 Last Admin: 12/06/19 16:58 Dose: 10 mg Documented by:
== END 2019-12-11 14:50 | disposition home or self-care (01) | DRG 177 ==
LOC: MW.ED 15:28 → MW.MS 18:19
PROVIDERS: ADMIT Student in an Organized Health Care Education/Training Program; ATTEND Student in an Organized Health Care Education/Training Program
PROC: XW033E5 Introduction of Remdesivir Anti-infective into Peripheral Vein, Percutaneous Approach, New Technology Group 5 (ICD-10-PCS; principal; 2019-12-06)
PROC: XW033E5 Introduction of Remdesivir Anti-infective into Peripheral Vein, Percutaneous Approach, New Technology Group 5 (ICD-10-PCS; 2019-12-07)
PROC: XW033E5 Introduction of Remdesivir Anti-infective into Peripheral Vein, Percutaneous Approach, New Technology Group 5 (ICD-10-PCS; 2019-12-08)
PROC: XW033E5 Introduction of Remdesivir Anti-infective into Peripheral Vein, Percutaneous Approach, New Technology Group 5 (ICD-10-PCS; 2019-12-09)
PROC: XW033E5 Introduction of Remdesivir Anti-infective into Peripheral Vein, Percutaneous Approach, New Technology Group 5 (ICD-10-PCS; 2019-12-10)
DX: U07.1 COVID-19 (principal); J96.01 Acute respiratory failure with hypoxia; E03.9 Hypothyroidism, unspecified; Z79.890 Hormone replacement therapy; Z79.899 Other long term (current) drug therapy; Z88.8 Allergy status to other drugs, medicaments and biological substances; Z96.659 Presence of unspecified artificial knee joint
CPT/HCPCS: 36415; 71045; 71045-26; 71275; 71275-26; 80048; 80053; 81001; 83735; 83880; 84100; 84145; 84484; 85025; 93005; 96372; 96374; 96375; 99222; 99231; 99232; 99238; 99284; 99285-25; A9270-GY; J0780; J1200; J1650; J2270; J2405; J7050; J7120; J8540; Q9967; U0002

== ENCOUNTER 2021-03-09 08:52 | Emergency (ER) | payer BC ==
--- NOTE | 2021-03-09 09:45 | CR ---
INDICATION: Cough. TECHNIQUE: PA and lateral chest radiographs. COMPARISON: 12/06/2019. FINDINGS: Minimal patchy bibasilar opacities. No pneumothorax or pleural effusion. Similar borderline cardiomegaly. IMPRESSION: Minimal patchy bibasilar opacities may reflect atelectasis/crowding and/or atypical infection. Dictated by Ollie Bond MD @ 03/09/2021 9:42:40 AM Dictated by: Ollie Bond MD @ 03/09/2021 09:42:45 (Electronically Signed)
--- NOTE | 2021-03-09 10:07 | EDM.PDOC ---
ED HPI GENERAL MEDICAL PROBLEM - General Chief Complaint: Respiratory Problem Stated Complaint: sinus infection Time Seen by Provider: 03/09/21 09:07 Source of Information: Reports: Patient History Limitations: Reports: No Limitations - History of Present Illness INITIAL COMMENTS - FREE TEXT/NARRATIVE: Patient is a 65-year-old female who presents today for cough. Says she is been having a cough and some sputum production for the past few days. She also reports some chest pain with coughing only. No chest pain with exertion. Denies any shortness of breath fevers or chills. She is also have some sinus patient as well. 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 Musculoskeletal History: Reports: None Neurological History: Reports: None Psychiatric History: Reports: None Endocrine/Metabolic History: Reports: Hypothyroidism Hematologic History: Reports: None Immunologic History: Reports: None Oncologic (Cancer) History: Reports: None Dermatologic History: Reports: None - Infectious Disease History Infectious Disease History: Reports: Chicken Pox - Past Surgical History Head Surgeries/Procedures: Reports: None HEENT Surgical History: Reports: None Musculoskeletal Surgical History: Reports: Knee Replacement Social & Family History - Family History Family Medical History: No Pertinent Family History - Tobacco Use Tobacco Use Status *Q: Never Tobacco User Second Hand Smoke Exposure: No - Caffeine Use Caffeine Use: Reports: Soda - Recreational Drug Use Recreational Drug Use: No ED ROS GENERAL - Review of Systems Review Of Systems: See Below Constitutional: Reports: No Symptoms HEENT: Reports: No Symptoms Respiratory: Reports: Cough Cardiovascular: Reports: No Symptoms Endocrine: Reports: No Symptoms GI/Abdominal: Reports: No Symptoms : Reports: No Symptoms Musculoskeletal: Reports: No Symptoms Skin: Reports: No Symptoms Neurological: Reports: No Symptoms Psychiatric: Reports: No Symptoms Hematologic/Lymphatic: Reports: No Symptoms Immunologic: Reports: No Symptoms ED EXAM, GENERAL - Physical Exam Exam: See Below Exam Limited By: No Limitations General Appearance: Alert, WD/WN, No Apparent Distress Head: Atraumatic Respiratory/Chest: No Respiratory Distress, Lungs Clear, Normal Breath Sounds Cardiovascular: Normal Peripheral Pulses, Regular Rate, Rhythm GI/Abdominal: Normal Bowel Sounds, Soft, Non-Tender Extremities: Normal Inspection, Normal Range of Motion Neurological: Alert, Oriented, Normal Cognition, Normal Gait #1 Interpretation EKG Date: 03/09/21 Time: 09:59 Rhythm: NSR Rate (Beats/Min): 62 ST-T: Normal Course - Vital Signs Last Recorded V/S: Last Vital Signs Temp 95.5 F L 03/09/21 09:13 Pulse 66 03/09/21 09:13 Resp 18 03/09/21 09:13 BP 151/93 H 03/09/21 09:13 Pulse Ox 93 L 03/09/21 09:13 - Orders/Labs/Meds Labs: Laboratory Tests 03/09/21 03/09/21 Range/Units 09:52 09:52 WBC 5.29 (4.0-11.0) K/uL RBC 4.61 (4.30-5.90) M/uL Hgb 13.1 (12.0-16.0) g/dL Hct 41.2 (36.0-46.0) % MCV 89.4 (80.0-98.0) fL MCH 28.4 (27.0-32.0) pg MCHC 31.8 (31.0-37.0) g/dL RDW Std Deviation 44.1 (28.0-62.0) fl RDW Coeff of Von 13 (11.0-15.0) % Plt Count 188 (150-400) K/uL MPV 9.40 (7.40-12.00) fL Neut % (Auto) 73.0 (48.0-80.0) % Lymph % (Auto) 16.3 (16.0-40.0) % Dickenson % (Auto) 7.8 (0.0-15.0) % Eos % (Auto) 2.5 (0.0-7.0) % Baso % (Auto) 0.4 (0.0-1.5) % Neut # (Auto) 3.9 (1.4-5.7) K/uL Lymph # (Auto) 0.9 (0.6-2.4) K/uL Dickenson # (Auto) 0.4 (0.0-0.8) K/uL Eos # (Auto) 0.1 (0.0-0.7) K/uL Baso # (Auto) 0.0 (0.0-0.1) K/uL Nucleated RBC % 0.0 /100WBC Nucleated RBCs # 0 K/uL Sodium 144 (136-145) mmol/L Potassium 3.7 (3.5-5.1) mmol/L Chloride 108 H (98-107) mmol/L Carbon Dioxide 27.1 (21.0-32.0) mmol/L BUN 10 (7.0-18.0) mg/dL Creatinine 0.7 (0.6-1.0) mg/dL Est Cr Clr Drug Dosing 91.94 mL/min Estimated GFR (MDRD) > 60.0 ml/min Glucose 110 H (74-106) mg/dL Calcium 8.6 (8.5-10.1) mg/dL Total Bilirubin 0.6 (0.2-1.0) mg/dL AST 23 (15-37) IU/L ALT 32 (14-63) IU/L Alkaline Phosphatase 122 H (46-116) U/L Troponin I < 0.050 (0.000-0.056) ng/mL Total Protein 7.0 (6.4-8.2) g/dL Albumin 3.2 L (3.4-5.0) g/dL Globulin 3.8 (2.6-4.0) g/dL Albumin/Globulin Ratio 0.8 L (0.9-1.6) - Re-Assessments/Exams Free Text/Narrative Re-Assessment/Exam: 03/09/21 10:27 Patient x-ray shows a possible pneumonia patient be discharged home with antibiotics. Departure - Departure Time of Disposition: 10:28 Disposition: Home, Self-Care 01 Condition: Good Clinical Impression: Atypical pneumonia - Discharge Information *PRESCRIPTION DRUG MONITORING PROGRAM REVIEWED*: Not Applicable *COPY OF PRESCRIPTION DRUG MONITORING REPORT IN PATIENT VERNA: Not Applicable Instructions: Community-Acquired Pneumonia, Adult Referrals: Devon Bethea MD [Primary Care Provider] - Forms: ED Department Discharge Additional Instructions: You are seen today for a cough and possible pneumonia. X-ray shows a possible atypical pneumonia. We will discharge you home with antibiotics. Please follow with your primary care physician. The following information is given to patients seen in the emergency department who are being discharged to home. This information is to outline your options for follow-up care. We provide all patients seen in our emergency department with a follow-up referral. The need for follow-up, as well as the timing and circumstances, are variable depending upon the specifics of your emergency department visit. If you don't have a primary care physician on staff, we will provide you with a referral. We always advise you to contact your personal physician following an emergency department visit to inform them of the circumstance of the visit and for follow-up with them and/or the need for any referrals to a consulting specialist. The emergency department will also refer you to a specialist when appropriate. This referral assures that you have the opportunity for follow-up care with a specialist. All of these measure are taken in an effort to provide you with optimal care, which includes your follow-up. Under all circumstances we always encourage you to contact your private physician who remains a resource for coordinating your care. When calling for follow-up care, please make the office aware that this follow-up is from your recent emergency room visit. If for any reason you are refused follow-up, please contact the [facility] Emergency Department at and asked to speak to the emergency department charge nurse. Please follow up with your primary care physician. If you do not have a primary care physician, see below: [facility] [address] [place] [id number] [facility] [address] [place] [id number] Sepsis Event Note (ED) - Evaluation Sepsis Screening Result: No Definite Risk - Focused Exam Vital Signs: Vital Signs Temp Pulse Resp BP Pulse Ox 03/09/21 09:13 95.5 F L 66 18 151/93 H 93 L - Assessment/Plan Plan: Patient 65-year-old female who presents today for possible pneumonia. She is to have productive cough. She also have some sinus pain. Will obtain x-ray labs EKG and reassess.
[2021-03-09 10:21] LABS: BLOOD UREA NITROGEN,BUN 10 mg/dL (7.0-18.0); CARBON DIOXIDE,CO2 27.1 mmol/L (21.0-32.0); CHLORIDE,CL 108 mmol/L (98-107); GLUCOSE RANDOM 110 mg/dL (74-106); POTASSIUM,K 3.7 mmol/L (3.5-5.1); SODIUM,NA 144 mmol/L (136-145)
== END 2021-03-09 10:40 | disposition home or self-care (01) ==
LOC: MW.ED 08:52
DX: J18.9 Pneumonia, unspecified organism (principal); E03.9 Hypothyroidism, unspecified; Z88.8 Allergy status to other drugs, medicaments and biological substances; Z79.899 Other long term (current) drug therapy
CPT/HCPCS: 36415; 71046; 71046-26; 80053; 84484; 85025; 99285-25

== ENCOUNTER 2021-04-29 14:21 | Emergency (ER) | payer BC ==
[2021-04-29] MEDS ORDERED: Sodium Chloride 0.9% 2.5 ML Syringe FLUSH PRN (14:43)
[2021-04-29] MEDS ORDERED: Sodium Chloride 0.9% 10 ML Syringe FLUSH PRN (14:43)
[2021-04-29] MEDS ORDERED: Ondansetron 4 MG/2 ML SDV IVPUSH ONE (15:01)
[2021-04-29 15:40] LABS: CARBON DIOXIDE,CO2 25.3 mmol/L (21.0-32.0)
[2021-04-29] MEDS ORDERED: Iopamidol 755 MG/ML 500 ML Multipack Bottle IVPUSH STA (16:39)
== END 2021-04-29 18:57 | disposition home or self-care (01) ==
LOC: MW.ED 14:21
DX: S20.221A Contusion of right back wall of thorax, initial encounter (principal); E03.9 Hypothyroidism, unspecified; Z88.8 Allergy status to other drugs, medicaments and biological substances; Z79.899 Other long term (current) drug therapy; Z20.822 Contact with and (suspected) exposure to COVID-19; W18.30XA Fall on same level, unspecified, initial encounter
CPT/HCPCS: 36415; 72128; 72128-26; 72131-26; 74177; 74177-26; 80053; 81003; 85025; 85610; 93005; 96374; 99284-25; J2405; Q9967; U0002

== ENCOUNTER 2022-02-15 09:27 | Emergency (ER) | payer BC ==
[2022-02-15 10:32] LABS: CARBON DIOXIDE,CO2 26.6 mmol/L (21.0-32.0); POTASSIUM,K 3.7 mmol/L (3.5-5.1)
[2022-02-15] MEDS ORDERED: Iopamidol 755 MG/ML 500 ML Multipack Bottle IVPUSH STA (11:17)
== END 2022-02-15 12:24 | disposition home or self-care (01) ==
LOC: MW.ED 09:27
DX: N30.90 Cystitis, unspecified without hematuria (principal); Z88.8 Allergy status to other drugs, medicaments and biological substances; Z88.5 Allergy status to narcotic agent; Z79.899 Other long term (current) drug therapy; Z90.49 Acquired absence of other specified parts of digestive tract
CPT/HCPCS: 36415; 74178; 80053; 81001; 84443; 85025; 87086; 99284; Q9967

== ENCOUNTER 2022-06-14 08:34 | Emergency (ER) | payer BC ==
[2022-06-14] MEDS ORDERED: HYDROmorphone 1 MG/ML Syringe IVPUSH ONE (08:56)
[2022-06-14] MEDS ORDERED: Sodium Chloride 0.9% 2.5 ML Syringe FLUSH PRN (08:56)
[2022-06-14] MEDS ORDERED: Sodium Chloride 0.9% 10 ML Syringe FLUSH PRN (08:56)
[2022-06-14] MEDS ORDERED: VANCOmycin 2 GM/400 ML 2 GM in Premix Bag 1 BAG IV ONE (09:15)
[2022-06-14] MEDS ORDERED: Acetaminophen 325 MG Tab PO ONE (09:36)
[2022-06-14] MEDS ORDERED: Ketorolac 30 MG/ML SDV IVPUSH ONE (09:36)
[2022-06-14 09:45] LABS: CARBON DIOXIDE,CO2 27.4 mmol/L (21.0-32.0); POTASSIUM,K 3.5 mmol/L (3.5-5.1)
[2022-06-14] MEDS ORDERED: Iopamidol 755 MG/ML 500 ML Multipack Bottle IVPUSH ONE (10:26)
== END 2022-06-14 13:02 | disposition home or self-care (01) ==
LOC: MW.ED 08:34
DX: L03.116 Cellulitis of left lower limb (principal); E03.9 Hypothyroidism, unspecified; Z96.642 Presence of left artificial hip joint; Z88.8 Allergy status to other drugs, medicaments and biological substances; Z88.5 Allergy status to narcotic agent; Z86.16 Personal history of COVID-19; Z79.899 Other long term (current) drug therapy
CPT/HCPCS: 36415; 73502; 73701; 80053; 83605; 85025; 85652; 87040; 96374; 96375; 99284; A9270; J1170; J1885; J3370; J3490; Q9967

== ENCOUNTER 2022-06-19 10:37 | Emergency (ER) | payer BC ==
[2022-06-19] MEDS ORDERED: Sodium Chloride 0.9% 2.5 ML Syringe FLUSH PRN (11:04)
[2022-06-19] MEDS ORDERED: Sodium Chloride 0.9% 10 ML Syringe FLUSH PRN (11:04)
[2022-06-19] MEDS ORDERED: Sodium Chloride 0.9% 1,000 ML IV STA (11:06)
[2022-06-19] MEDS ORDERED: Cefepime 2 GM in Sodium Chloride 0.9% 50 ML IV STA (11:26)
[2022-06-19 11:53] LABS: CARBON DIOXIDE,CO2 28.9 mmol/L (21.0-32.0); POTASSIUM,K 3.8 mmol/L (3.5-5.1)
[2022-06-19] MEDS ORDERED: VANCOmycin 2 GM/400 ML 2 GM in Premix Bag 1 BAG IV ONE (12:00)
== END 2022-06-19 14:02 | disposition home or self-care (01) ==
LOC: MW.ED 10:37
DX: M25.552 Pain in left hip (principal); S70.12XD Contusion of left thigh, subsequent encounter; E03.9 Hypothyroidism, unspecified; Z88.5 Allergy status to narcotic agent; Z88.8 Allergy status to other drugs, medicaments and biological substances; Z79.899 Other long term (current) drug therapy; Z90.49 Acquired absence of other specified parts of digestive tract
CPT/HCPCS: 36415; 80053; 81003; 83605; 85025; 85652; 86140; 87040; 96365; 99283; J0692; J3490; J7030

== ENCOUNTER 2022-11-23 15:20 | Emergency (ER) | payer OTHER, BC ==
[2022-11-23] MEDS ORDERED: Sodium Chloride 0.9% 2.5 ML Syringe FLUSH PRN (16:38)
[2022-11-23] MEDS ORDERED: Naloxone 0.4 MG/ML SDV IVPUSH PRN (16:38)
[2022-11-23] MEDS ORDERED: Sodium Chloride 0.9% 10 ML Syringe FLUSH PRN (16:38)
[2022-11-23] MEDS ORDERED: Morphine 4 MG/ML Syringe IVPUSH ONE (16:38)
[2022-11-23] MEDS ORDERED: Morphine 2 MG/ML SYRINGE IVPUSH ONE (16:45)
[2022-11-23 17:02] LABS: BASOPHILS PERCENT AUTO 0.3 % (0.0-1.5); EOSINOPHILS ABSOLUTE AUTO 0.1 K/uL (0.0-0.7); EOSINOPHILS PERCENT AUTO 1.1 % (0.0-7.0); HEMATOCRIT 41.3 % (36.0-46.0); HEMOGLOBIN 13.1 g/dL (12.0-16.0); LYMPHOCYTES ABSOLUTE AUTO 0.8 K/uL (0.6-2.4); LYMPHOCYTES PERCENT AUTO 12.4 % (16.0-40.0); MEAN CORPUSCULAR HEMOGLOBIN 27.6 pg (27.0-32.0); MEAN CORPUSCULAR HGB CONC 31.7 g/dL (31.0-37.0); MEAN CORPUSCULAR VOLUME 87.1 fL (80.0-98.0); MONOCYTES ABSOLUTE AUTO 0.5 K/uL (0.0-0.8); MONOCYTES PERCENT AUTO 7.9 % (0.0-15.0); NEUTROPHILS ABSOLUTE AUTO 4.9 K/uL (1.4-5.7); NEUTROPHILS PERCENT AUTO 78.3 % (48.0-80.0); NRBC ABSOLUTE 0 K/uL; PLATELET COUNT,PLT 227 K/uL (150-400); RED BLOOD CELL COUNT 4.74 M/uL (4.30-5.90)
[2022-11-23] MEDS: Ondansetron 4 MG/2 ML SDV IVPUSH ONE ×2 (17:08→17:15)
[2022-11-23 17:36] LABS: A/G RATIO 0.8 (0.9-1.6); ALBUMIN 3.5 g/dL (3.4-5.0); BILIRUBIN TOTAL 0.4 mg/dL (0.2-1.0); CARBON DIOXIDE,CO2 29.8 mmol/L (21.0-32.0); CREATININE 0.8 mg/dL (0.6-1.0); EST CRCL DRUG DOSING (CG) 78.36 mL/min; MAGNESIUM 2.2 mg/dL (1.8-2.4); PROTEIN TOTAL,TP 7.7 g/dL (6.4-8.2)
[2022-11-23 17:44] LABS: LACTIC ACID 0.4 mmol/L (0.4-2.0)
[2022-11-23] MEDS ORDERED: Metoclopramide 10 MG/2 ML SDV IVPUSH ONE (19:13)
[2022-11-23] MEDS ORDERED: diphenhydrAMINE 50 MG/ML SDV IVPUSH ONE (19:13)
[2022-11-23] MEDS ORDERED: Sodium Chloride 0.9% 1,000 ML IV ONE (19:13)
== END 2022-11-23 20:05 | disposition home or self-care (01) ==
LOC: MW.ED 15:20
DX: S79.912A Unspecified injury of left hip, initial encounter (principal); S59.902A Unspecified injury of left elbow, initial encounter; E03.9 Hypothyroidism, unspecified; Z86.16 Personal history of COVID-19; Z79.899 Other long term (current) drug therapy; Z88.5 Allergy status to narcotic agent; Z88.6 Allergy status to analgesic agent; W01.10XA Fall on same level from slipping, tripping and stumbling with subsequent striking against unspecified object, initial encounter; Y92.219 Unspecified school as the place of occurrence of the external cause; Y99.0 Civilian activity done for income or pay
CPT/HCPCS: 36415; 70450; 72125; 73080; 73110; 73502; 80053; 83605; 83690; 83735; 84484; 85025; 93005; 96374; 96375; 99284; J1200; J2270; J2405; J2765; J3490; J7030; 93010

== ENCOUNTER 2022-12-02 10:25 | Emergency (ER) | payer OTHER, BC ==
[2022-12-02] MEDS ORDERED: Meclizine 25 MG Tab PO ONE (10:47)
== END 2022-12-02 13:51 | disposition home or self-care (01) ==
LOC: MW.ED 10:25
DX: F07.81 Postconcussional syndrome (principal); E03.9 Hypothyroidism, unspecified; Z86.16 Personal history of COVID-19; Z79.899 Other long term (current) drug therapy; Z88.5 Allergy status to narcotic agent; Z88.8 Allergy status to other drugs, medicaments and biological substances
CPT/HCPCS: 70450; 70486; 99284; A9270; 99283

== ENCOUNTER 2022-12-21 09:44 | Emergency (ER) | payer OTHER, BC ==
[2022-12-21] MEDS ORDERED: diphenhydrAMINE 50 MG/ML SDV IVPUSH ONE (10:27)
[2022-12-21] MEDS ORDERED: Metoclopramide 10 MG/2 ML SDV IVPUSH ONE (10:27)
[2022-12-21] MEDS ORDERED: Sodium Chloride 0.9% 1,000 ML IV ONE (10:27)
[2022-12-21] MEDS ORDERED: Ketorolac 30 MG/ML SDV IVPUSH ONE (10:27)
[2022-12-21 11:03] LABS: BASOPHILS ABSOLUTE AUTO 0.03 K/uL (0.00-0.20); BASOPHILS PERCENT AUTO 0.9 % (0.0-1.0); EOSINOPHILS ABSOLUTE AUTO 0.11 K/uL (0.00-0.45); EOSINOPHILS PERCENT AUTO 3.1 % (0.0-6.0); HEMATOCRIT 38.9 % (37.0-47.0); HEMOGLOBIN 12.5 g/dL (12.0-16.0); IMMATURE GRAN ABSOLUTE AUTO 0.01 K/uL (0.00-0.05); IMMATURE GRAN PERCENT AUTO 0.3 % (0.0-0.4); LYMPHOCYTES ABSOLUTE AUTO 0.79 K/uL (1.00-4.80); LYMPHOCYTES PERCENT AUTO 22.5 % (24.0-44.0); MEAN CORPUSCULAR HEMOGLOBIN 27.7 pg (28.0-32.0); MEAN CORPUSCULAR HGB CONC 32.1 g/dL (32.0-36.0); MEAN CORPUSCULAR VOLUME 86.3 fL (83.0-99.0); MEAN PLATELET VOLUME 9.5 fL (9.4-12.3); MONOCYTES ABSOLUTE AUTO 0.29 K/uL (0.00-0.80); MONOCYTES PERCENT AUTO 8.3 % (0.0-8.0); NEUTROPHILS ABSOLUTE AUTO 2.3 K/uL (1.8-7.7); NEUTROPHILS PERCENT AUTO 64.9 % (41.0-71.0); PLATELET COUNT,PLT 204 K/uL (150-400); RED BLOOD CELL COUNT 4.51 M/uL (4.10-5.30); WHITE BLOOD CELL COUNT,WBC 3.51 K/uL (3.9-11.3)
[2022-12-21 11:25] LABS: ALBUMIN 3.3 g/dL (3.4-5.0); BILIRUBIN TOTAL 0.5 mg/dL (0.2-1.0); CALCIUM 8.5 mg/dL (8.5-10.1); CARBON DIOXIDE,CO2 29.5 mmol/L (21.0-32.0); CREATININE 0.8 mg/dL (0.6-1.0); EST CRCL DRUG DOSING (CG) 78.36 mL/min; POTASSIUM,K 4.2 mmol/L (3.5-5.1); PROTEIN TOTAL,TP 7.2 g/dL (6.4-8.2)
[2022-12-21 11:27] LABS: A/G RATIO 0.9 (0.9-1.6)
== END 2022-12-21 12:13 | disposition home or self-care (01) ==
LOC: MW.ED 09:44
DX: R51.9 Headache, unspecified (principal); E03.9 Hypothyroidism, unspecified; Z79.899 Other long term (current) drug therapy; Z88.6 Allergy status to analgesic agent; Z88.8 Allergy status to other drugs, medicaments and biological substances; Z87.820 Personal history of traumatic brain injury
CPT/HCPCS: 36415; 80053; 85025; 96361; 96374; 96375; 99284; J1200; J1885; J2765; J7030

== ENCOUNTER 2023-07-07 03:35 | Inpatient (IN) | payer BC, MEDICARE ==
[2023-07-07 03:55] LABS: BASE EXCESS VENOUS -0.2 (-2.0-3.0); BASOPHILS ABSOLUTE AUTO 0.03 K/uL (0.00-0.20); BASOPHILS PERCENT AUTO 0.6 % (0.0-1.0); EOSINOPHILS ABSOLUTE AUTO 0.17 K/uL (0.00-0.45); EOSINOPHILS PERCENT AUTO 3.6 % (0.0-6.0); HEMATOCRIT 40.3 % (37.0-47.0); HEMOGLOBIN 12.8 g/dL (12.0-16.0); IMMATURE GRAN ABSOLUTE AUTO 0.01 K/uL (0.00-0.05); IMMATURE GRAN PERCENT AUTO 0.2 % (0.0-0.4); LYMPHOCYTES ABSOLUTE AUTO 1.36 K/uL (1.00-4.80); LYMPHOCYTES PERCENT AUTO 28.6 % (24.0-44.0); MEAN CORPUSCULAR HEMOGLOBIN 28.2 pg (28.0-32.0); MEAN CORPUSCULAR HGB CONC 31.8 g/dL (32.0-36.0); MEAN CORPUSCULAR VOLUME 88.8 fL (83.0-99.0); MEAN PLATELET VOLUME 9.6 fL (9.4-12.3); MONOCYTES ABSOLUTE AUTO 0.28 K/uL (0.00-0.80); MONOCYTES PERCENT AUTO 5.9 % (0.0-8.0); NEUTROPHILS PERCENT AUTO 61.1 % (41.0-71.0); PH,VENOUS 7.38 (7.31-7.41); PLATELET COUNT,PLT 214 K/uL (150-400); RED BLOOD CELL COUNT 4.54 M/uL (4.10-5.30); WHITE BLOOD CELL COUNT,WBC 4.75 K/uL (3.9-11.3)
[2023-07-07 04:09] LABS: D-DIMER QUANTITATIVE 1.67 mg/L FEU (0.00-0.50); INR 0.96 (0.86-1.11); PTT,PARTIAL THROMBOPLSTIN TIME 24.9 SEC (23.9-30.7)
[2023-07-07] MEDS: Enoxaparin 150 MG/1 ML Syringe SUBCUT ONE (04:10)
[2023-07-07] MEDS: Nitroglycerin 0.4 MG Tab.SL SL ONE (04:10)
[2023-07-07] MEDS: Furosemide 40 MG/4 ML VIAL IVPUSH ONE (04:11)
[2023-07-07 04:22] LABS: A/G RATIO 0.8 (0.9-1.6); ALBUMIN 3.3 g/dL (3.4-5.0); BILIRUBIN TOTAL 0.6 mg/dL (0.2-1.0); CALCIUM 8.7 mg/dL (8.5-10.1); CARBON DIOXIDE,CO2 26.5 mmol/L (21.0-32.0); EST CRCL DRUG DOSING (CG) 61.85 mL/min; POTASSIUM,K 3.8 mmol/L (3.5-5.1); PROTEIN TOTAL,TP 7.5 g/dL (6.4-8.2)
[2023-07-07 04:36] LABS: CORONAVIRUS COVID-19 NAA NEGATIVE (NEGATIVE); INFLUENZA A NAA NEGATIVE (NEGATIVE); INFLUENZA B NAA NEGATIVE (NEGATIVE)
[2023-07-07] MEDS: Iopamidol 755 MG/ML 500 ML Multipack Bottle IVPUSH STA (04:58)
[2023-07-07] MEDS ORDERED: Albuterol/Ipratropium 3.0-0.5 MG/3 ML Neb Soln NEB PRN (09:08)
[2023-07-07] MEDS ORDERED: Acetaminophen 325 MG Tab PO PRN (09:08)
[2023-07-07] MEDS ORDERED: Polyethylene Glycol 3350 Powder 17 GM Packet PO PRN (09:08)
[2023-07-07] MEDS ORDERED: Ondansetron 4 MG Tab.DIS PO PRN (09:08)
[2023-07-07 11:37] LABS: TSH ULTRASENSITIVE 4.74 uIU/mL (0.36-3.74)
[2023-07-07] MEDS: Enoxaparin 40 MG/0.4 ML Syringe SUBCUT SCH (11:56)
[2023-07-07] MEDS: Furosemide 40 MG/4 ML VIAL IVPUSH SCH (13:22)
[2023-07-07 14:05] LABS: T4 FREE 1.3 ng/dL (0.76-1.46)
[2023-07-07] MEDS: Lisinopril 10 MG Tab PO SCH (17:53)
[2023-07-08 06:16] LABS: BASOPHILS ABSOLUTE AUTO 0.03 K/uL (0.00-0.20); BASOPHILS PERCENT AUTO 0.8 % (0.0-1.0); EOSINOPHILS ABSOLUTE AUTO 0.13 K/uL (0.00-0.45); EOSINOPHILS PERCENT AUTO 3.4 % (0.0-6.0); HEMATOCRIT 38.3 % (37.0-47.0); HEMOGLOBIN 12.2 g/dL (12.0-16.0); IMMATURE GRAN ABSOLUTE AUTO 0.01 K/uL (0.00-0.05); IMMATURE GRAN PERCENT AUTO 0.3 % (0.0-0.4); LYMPHOCYTES ABSOLUTE AUTO 0.92 K/uL (1.00-4.80); LYMPHOCYTES PERCENT AUTO 24.2 % (24.0-44.0); MEAN CORPUSCULAR HGB CONC 31.9 g/dL (32.0-36.0); MEAN CORPUSCULAR VOLUME 87.8 fL (83.0-99.0); MEAN PLATELET VOLUME 9.7 fL (9.4-12.3); MONOCYTES ABSOLUTE AUTO 0.28 K/uL (0.00-0.80); MONOCYTES PERCENT AUTO 7.4 % (0.0-8.0); NEUTROPHILS ABSOLUTE AUTO 2.43 K/uL (1.80-7.70); NEUTROPHILS PERCENT AUTO 63.9 % (41.0-71.0); PLATELET COUNT,PLT 192 K/uL (150-400); RED BLOOD CELL COUNT 4.36 M/uL (4.10-5.30)
[2023-07-08] MEDS: Enoxaparin 40 MG/0.4 ML Syringe SUBCUT SCH (06:30)
[2023-07-08] MEDS: Levothyroxine 150 MCG Tab PO SCH (06:32)
[2023-07-08 06:53] LABS: A/G RATIO 0.8 (0.9-1.6); BILIRUBIN TOTAL 0.7 mg/dL (0.2-1.0); CALCIUM 8.6 mg/dL (8.5-10.1); EST CRCL DRUG DOSING (CG) 61.85 mL/min; POTASSIUM,K 3.3 mmol/L (3.5-5.1); PROTEIN TOTAL,TP 6.6 g/dL (6.4-8.2)
[2023-07-08] MEDS: Potassium Chloride 20 MEQ Tab.ER PO ONE ×2 (08:06→13:11)
[2023-07-08] MEDS: Apixaban 5 MG Tab PO SCH (08:08)
[2023-07-08] MEDS: Diltiazem 25 MG/5 ML SDV IVPUSH STA (08:08)
[2023-07-08] MEDS: Metoprolol Tartrate 25 MG Tab PO ONE (13:12)
[2023-07-08] MEDS: Spironolactone 25 MG Tab PO SCH (13:12)
[2023-07-08] MEDS: Lisinopril 10 MG Tab PO SCH (13:13)
[2023-07-08] MEDS: Empagliflozin 10 MG Tab PO SCH (13:13)
[2023-07-09 06:22] LABS: BASOPHILS ABSOLUTE AUTO 0.02 K/uL (0.00-0.20); BASOPHILS PERCENT AUTO 0.5 % (0.0-1.0); EOSINOPHILS ABSOLUTE AUTO 0.14 K/uL (0.00-0.45); EOSINOPHILS PERCENT AUTO 3.5 % (0.0-6.0); HEMATOCRIT 39.2 % (37.0-47.0); HEMOGLOBIN 12.6 g/dL (12.0-16.0); IMMATURE GRAN ABSOLUTE AUTO 0.01 K/uL (0.00-0.05); IMMATURE GRAN PERCENT AUTO 0.2 % (0.0-0.4); LYMPHOCYTES ABSOLUTE AUTO 1.02 K/uL (1.00-4.80); LYMPHOCYTES PERCENT AUTO 25.3 % (24.0-44.0); MEAN CORPUSCULAR HEMOGLOBIN 28.3 pg (28.0-32.0); MEAN CORPUSCULAR HGB CONC 32.1 g/dL (32.0-36.0); MEAN CORPUSCULAR VOLUME 88.1 fL (83.0-99.0); MEAN PLATELET VOLUME 10.1 fL (9.4-12.3); MONOCYTES ABSOLUTE AUTO 0.32 K/uL (0.00-0.80); MONOCYTES PERCENT AUTO 7.9 % (0.0-8.0); NEUTROPHILS ABSOLUTE AUTO 2.52 K/uL (1.80-7.70); NEUTROPHILS PERCENT AUTO 62.6 % (41.0-71.0); PLATELET COUNT,PLT 203 K/uL (150-400); RED BLOOD CELL COUNT 4.45 M/uL (4.10-5.30); WHITE BLOOD CELL COUNT,WBC 4.03 K/uL (3.9-11.3)
[2023-07-09 06:46] LABS: A/G RATIO 0.8 (0.9-1.6); BILIRUBIN TOTAL 0.5 mg/dL (0.2-1.0); CALCIUM 8.6 mg/dL (8.5-10.1); CARBON DIOXIDE,CO2 26.3 mmol/L (21.0-32.0); CREATININE 1.1 mg/dL (0.6-1.0); EST CRCL DRUG DOSING (CG) 56.23 mL/min; MAGNESIUM 2.2 mg/dL (1.8-2.4); POTASSIUM,K 3.4 mmol/L (3.5-5.1); PROTEIN TOTAL,TP 6.7 g/dL (6.4-8.2)
[2023-07-09] MEDS: Metoprolol Succinate 50 MG Tab.ER PO SCH (08:14)
[2023-07-09] MEDS: Potassium Chloride 20 MEQ Tab.ER PO ONE (09:40)
== END 2023-07-09 13:04 | disposition home or self-care (01) | DRG 194 ==
LOC: MW.ED 03:35 → UNDOADMIN 05:12 → MW.MS 05:12
PROVIDERS: ADMIT Family Medicine; ATTEND Family Medicine
DX: I50.21 Acute systolic (congestive) heart failure (principal); J81.0 Acute pulmonary edema; I48.91 Unspecified atrial fibrillation; E03.9 Hypothyroidism, unspecified; M54.2 Cervicalgia; G89.29 Other chronic pain; Z96.649 Presence of unspecified artificial hip joint; Z96.659 Presence of unspecified artificial knee joint; Z88.8 Allergy status to other drugs, medicaments and biological substances; Z79.899 Other long term (current) drug therapy; Z86.16 Personal history of COVID-19; Z98.49 Cataract extraction status, unspecified eye; Z90.49 Acquired absence of other specified parts of digestive tract; Z98.891 History of uterine scar from previous surgery
CPT/HCPCS: 0240U; 36415; 71045; 71045-26; 71275; 71275-26; 80053; 82803; 83735; 83880; 84439; 84443; 84484; 85025; 85379; 85610; 85730; 93005; 93010; 93306; 96372; 96374; 99222; 99232; 99239; 99285; 99285-25; A9270-GY; J1650; J1940; J3490; Q9967

== ENCOUNTER 2023-07-29 08:48 | Observation (INO) | payer BC, MEDICARE ==
[2023-07-29 09:06] LABS: BASOPHILS ABSOLUTE AUTO 0.03 K/uL (0.00-0.20); BASOPHILS PERCENT AUTO 0.6 % (0.0-1.0); HEMOGLOBIN 14.6 g/dL (12.0-16.0); IMMATURE GRAN ABSOLUTE AUTO 0.01 K/uL (0.00-0.05); IMMATURE GRAN PERCENT AUTO 0.2 % (0.0-0.4); LYMPHOCYTES ABSOLUTE AUTO 1.13 K/uL (1.00-4.80); LYMPHOCYTES PERCENT AUTO 22.7 % (24.0-44.0); MEAN CORPUSCULAR HEMOGLOBIN 27.7 pg (28.0-32.0); MEAN CORPUSCULAR HGB CONC 31.7 g/dL (32.0-36.0); MEAN CORPUSCULAR VOLUME 87.3 fL (83.0-99.0); MEAN PLATELET VOLUME 9.7 fL (9.4-12.3); MONOCYTES ABSOLUTE AUTO 0.34 K/uL (0.00-0.80); MONOCYTES PERCENT AUTO 6.8 % (0.0-8.0); NEUTROPHILS ABSOLUTE AUTO 3.37 K/uL (1.80-7.70); NEUTROPHILS PERCENT AUTO 67.7 % (41.0-71.0); PLATELET COUNT,PLT 202 K/uL (150-400); RED BLOOD CELL COUNT 5.27 M/uL (4.10-5.30); WHITE BLOOD CELL COUNT,WBC 4.98 K/uL (3.9-11.3)
[2023-07-29 09:18] LABS: INR 0.96 (0.86-1.11)
[2023-07-29] MEDS: Sodium Chloride 0.9% 10 ML Syringe FLUSH PRN (09:21)
[2023-07-29] MEDS: Sodium Chloride 0.9% 2.5 ML Syringe FLUSH PRN (09:22)
[2023-07-29] MEDS: Furosemide 40 MG/4 ML VIAL IVPUSH ONE (09:31)
[2023-07-29 09:37] LABS: A/G RATIO 0.7 (0.9-1.6); ALBUMIN 3.4 g/dL (3.4-5.0); BILIRUBIN TOTAL 0.4 mg/dL (0.2-1.0); CARBON DIOXIDE,CO2 28.1 mmol/L (21.0-32.0); CREATININE 1.1 mg/dL (0.6-1.0); EST CRCL DRUG DOSING (CG) 52.58 mL/min; POTASSIUM,K 4.3 mmol/L (3.5-5.1)
[2023-07-29 09:56] LABS: CORONAVIRUS COVID-19 NAA NEGATIVE (NEGATIVE); INFLUENZA A NAA NEGATIVE (NEGATIVE); INFLUENZA B NAA NEGATIVE (NEGATIVE); RESPIRATORY SYNCYTIAL VIR NAA NEGATIVE (NEGATIVE)
[2023-07-29] MEDS: Nitroglycerin 0.4 MG Tab.SL SL ONE (10:15)
[2023-07-29] MEDS: Aspirin 325 MG Tab PO ONE (10:32)
[2023-07-29] MEDS: Lisinopril 10 MG Tab PO ONE (13:52)
[2023-07-29] MEDS: Furosemide 40 MG Tab PO SCH (17:52)
[2023-07-29] MEDS: Amitriptyline 10 MG Tab PO SCH (20:14)
[2023-07-29] MEDS: Apixaban 5 MG Tab PO SCH (20:14)
[2023-07-30 06:21] LABS: BASOPHILS ABSOLUTE AUTO 0.03 K/uL (0.00-0.20); BASOPHILS PERCENT AUTO 0.6 % (0.0-1.0); EOSINOPHILS ABSOLUTE AUTO 0.11 K/uL (0.00-0.45); EOSINOPHILS PERCENT AUTO 2.3 % (0.0-6.0); HEMATOCRIT 45.2 % (37.0-47.0); HEMOGLOBIN 14.7 g/dL (12.0-16.0); IMMATURE GRAN ABSOLUTE AUTO 0.01 K/uL (0.00-0.05); IMMATURE GRAN PERCENT AUTO 0.2 % (0.0-0.4); LYMPHOCYTES PERCENT AUTO 26.6 % (24.0-44.0); MEAN CORPUSCULAR HEMOGLOBIN 28.1 pg (28.0-32.0); MEAN CORPUSCULAR HGB CONC 32.5 g/dL (32.0-36.0); MEAN CORPUSCULAR VOLUME 86.4 fL (83.0-99.0); MEAN PLATELET VOLUME 9.8 fL (9.4-12.3); MONOCYTES ABSOLUTE AUTO 0.36 K/uL (0.00-0.80); MONOCYTES PERCENT AUTO 7.4 % (0.0-8.0); NEUTROPHILS ABSOLUTE AUTO 3.07 K/uL (1.80-7.70); NEUTROPHILS PERCENT AUTO 62.9 % (41.0-71.0); PLATELET COUNT,PLT 194 K/uL (150-400); RED BLOOD CELL COUNT 5.23 M/uL (4.10-5.30); WHITE BLOOD CELL COUNT,WBC 4.88 K/uL (3.9-11.3)
[2023-07-30 06:35] LABS: CALCIUM 8.9 mg/dL (8.5-10.1); CARBON DIOXIDE,CO2 28.7 mmol/L (21.0-32.0); CREATININE 1.3 mg/dL (0.6-1.0); EST CRCL DRUG DOSING (CG) 47.58 mL/min; POTASSIUM,K 3.7 mmol/L (3.5-5.1)
[2023-07-30] MEDS: Levothyroxine 150 MCG Tab PO SCH (07:02)
[2023-07-30] MEDS: Empagliflozin 10 MG Tab PO SCH (09:25)
[2023-07-30] MEDS: Spironolactone 25 MG Tab PO SCH (09:25)
[2023-07-30] MEDS: Lisinopril 10 MG Tab PO SCH (09:26)
[2023-07-30] MEDS: Metoprolol Succinate 50 MG Tab.ER PO SCH (09:26)
[2023-07-30] MEDS: Lisinopril 10 MG Tab PO ONE (11:55)
== END 2023-07-30 17:38 | disposition home or self-care (01) ==
LOC: MW.ED 08:48 → MW.MS 10:48
PROVIDERS: ADMIT Internal Medicine; ATTEND Internal Medicine
DX: I11.0 Hypertensive heart disease with heart failure (principal); I50.23 Acute on chronic systolic (congestive) heart failure; I48.91 Unspecified atrial fibrillation; E03.9 Hypothyroidism, unspecified; Z79.890 Hormone replacement therapy; Z79.01 Long term (current) use of anticoagulants; Z79.899 Other long term (current) drug therapy
CPT/HCPCS: 0241U; 36415; 71045; 80048; 80053; 83690; 83880; 84484; 85025; 85610; 93005; 96374; 99285; A9270; J1940; J3490; 93010; 99284; G0378

== ENCOUNTER 2023-11-03 16:52 | Emergency (ER) | payer BC, MEDICARE ==
[2023-11-03] MEDS ORDERED: Sodium Chloride 0.9% 2.5 ML Syringe FLUSH PRN (17:19)
[2023-11-03] MEDS ORDERED: Sodium Chloride 0.9% 10 ML Syringe FLUSH PRN (17:19)
[2023-11-03] MEDS: Ondansetron 4 MG/2 ML SDV IVPUSH STA (17:37)
[2023-11-03 17:41] LABS: BASOPHILS ABSOLUTE AUTO 0.03 K/uL (0.00-0.20); BASOPHILS PERCENT AUTO 0.6 % (0.0-1.0); EOSINOPHILS ABSOLUTE AUTO 0.08 K/uL (0.00-0.45); EOSINOPHILS PERCENT AUTO 1.6 % (0.0-6.0); HEMATOCRIT 44.1 % (37.0-47.0); HEMOGLOBIN 14.6 g/dL (12.0-16.0); IMMATURE GRAN ABSOLUTE AUTO 0.01 K/uL (0.00-0.05); IMMATURE GRAN PERCENT AUTO 0.2 % (0.0-0.4); LYMPHOCYTES ABSOLUTE AUTO 1.01 K/uL (1.00-4.80); LYMPHOCYTES PERCENT AUTO 19.6 % (24.0-44.0); MEAN CORPUSCULAR HGB CONC 33.1 g/dL (32.0-36.0); MEAN CORPUSCULAR VOLUME 87.5 fL (83.0-99.0); MEAN PLATELET VOLUME 9.5 fL (9.4-12.3); MONOCYTES ABSOLUTE AUTO 0.38 K/uL (0.00-0.80); MONOCYTES PERCENT AUTO 7.4 % (0.0-8.0); NEUTROPHILS ABSOLUTE AUTO 3.63 K/uL (1.80-7.70); NEUTROPHILS PERCENT AUTO 70.6 % (41.0-71.0); PLATELET COUNT,PLT 221 K/uL (150-400); RED BLOOD CELL COUNT 5.04 M/uL (4.10-5.30); WHITE BLOOD CELL COUNT,WBC 5.14 K/uL (3.9-11.3)
[2023-11-03 17:50] LABS: APPEARANCE,URINE CLEAR; BILIRUBIN,URINE NEGATIVE (NEGATIVE); COLOR,URINE YELLOW; GLUCOSE,URINE 500 mg/dL (NEGATIVE); KETONES,URINE TRACE mg/dL (NEGATIVE); LEUKOCYTE ESTERASE,URINE NEGATIVE (NEGATIVE); NITRITE,URINE NEGATIVE (NEGATIVE); OCCULT BLOOD,URINE NEGATIVE (NEGATIVE); PH,URINE 5.5 (5.0-8.0); PROTEIN,URINE NEGATIVE (NEGATIVE); UROBILINOGEN,URINE 0.2 EU/dL (<2.0)
[2023-11-03 17:59] LABS: INR 0.98 (0.86-1.11); PTT,PARTIAL THROMBOPLSTIN TIME 24.6 SEC (23.9-30.7)
[2023-11-03 18:05] LABS: ALBUMIN 3.6 g/dL (3.4-5.0); BILIRUBIN TOTAL 0.4 mg/dL (0.2-1.0); CALCIUM 9.2 mg/dL (8.5-10.1); CARBON DIOXIDE,CO2 29.9 mmol/L (21.0-32.0); CREATININE 1.2 mg/dL (0.6-1.0); EST CRCL DRUG DOSING (CG) 51.54 mL/min; POTASSIUM,K 4.7 mmol/L (3.5-5.1); PROTEIN TOTAL,TP 7.1 g/dL (6.4-8.2)
[2023-11-03] MEDS: Iopamidol 755 MG/ML 500 ML Multipack Bottle IVPUSH STA (19:09)
== END 2023-11-03 20:25 | disposition home or self-care (01) ==
LOC: MW.ED 16:52
DX: I13.0 Hypertensive heart and chronic kidney disease with heart failure and stage 1 through stage 4 chronic kidney disease, or unspecified chronic kidney disease (principal); I50.9 Heart failure, unspecified; N18.31 Chronic kidney disease, stage 3a; I48.91 Unspecified atrial fibrillation; E03.9 Hypothyroidism, unspecified; Z86.16 Personal history of COVID-19; Z90.49 Acquired absence of other specified parts of digestive tract; Z90.710 Acquired absence of both cervix and uterus; Z79.01 Long term (current) use of anticoagulants; Z79.890 Hormone replacement therapy; Z79.899 Other long term (current) drug therapy; Z88.5 Allergy status to narcotic agent; Z88.8 Allergy status to other drugs, medicaments and biological substances; Z75.8 Other problems related to medical facilities and other health care
CPT/HCPCS: 36415; 71046; 74177; 80053; 81003; 82607; 83690; 84484; 85025; 85610; 85730; 93005; 96374; 99285; J2405; Q9967; 93010